=== PATIENT | female | born 1950 | race Caucasian/White ===

== ENCOUNTER 2018-05-05 17:05 | Inpatient (IN) | payer MEDICARE, OTHER ==
--- NOTE | 2018-05-05 17:32 | PDOC ---
Rapid Medical Evaluation Time Seen by Provider: 05/05/18 17:30 Medical Evaluation: 05/05/18 17:30 I performed a brief in-person evaluation on this patient. Chief complaint: Weakness, dizziness, chest tightness Pertinent physical exam findings: Pulse 36 I have ordered the following: EKG, CXR, labs Patient brought to ED monitored bed for further evaluation. Discharge Disposition - Diagnosis Symptomatic bradycardia - Referrals - Patient Instructions - Post Discharge Activity
--- NOTE | 2018-05-05 18:35 | PDOC ---
History of Present Illness - General Chief Complaint: Irregular Heart Beat Stated Complaint: BLOOD PRESSURE PROBLEM Time Seen by Provider: 05/05/18 17:30 - History of Present Illness Initial Comments: Patsy Welsh is a 68yo woman with a PMH of HTN, NIDDM, and depression who presents with fatigue for one month, acutely worsened today, and who presented with a HR of 36 in E. Ms Welsh is Wolof speaking only and her adult daughter is present to translate at bedside; a phone sheet mill supervisor was not contacted due to the urgent nature. Ms Welsh reports that she has been unusally tired for a month, but she went to her PMD about 2 weeks ago and was told she was fine. She states that she has also noticed dizziness when she stands up over the same time period. Yesterday evening, she had some chest pain that has since resolved. When she woke up this morning she was much more tired than she had been previously. She informed her daughter this evening, and the daughter brought her to the ED for evaluation. She denies any current chest pain, recent SOB, arm pain, cough, fever/chills, or other recent symptoms. Past History - Past Medical History Allergies/Adverse Reactions: Allergies Allergy/AdvReac Type Severity Reaction Status Date / Time niacin Allergy Verified 05/05/18 17:33 Home Medications: Ambulatory Orders Aspirin 81 mg PO DAILY 05/05/18 Fenofibrate,Micronized [Fenofibrate] 134 mg PO DAILY 05/05/18 Losartan Potassium [Cozaar -] 50 mg PO DAILY 05/05/18 Metformin HCl [Glucophage] 500 mg PO DAILY 05/05/18 Sertraline HCl [Zoloft -] 50 mg PO DAILY 05/05/18 COPD: No Diabetes: Yes HTN: Yes Hypercholesterolemia: Yes Psychiatric Problems: Yes (depression) - Suicide/Smoking/Psychosocial Hx Smoking History: Never smoked Review of Systems - Review of Systems Comments:: General: No fevers, no chills, no weight or appetite change, no malaise HEENT: No changes in vision, no changes in hearing, no congestion, no sore throat CV: See HPI Pulm: No SOB, no cough, no wheezing GI: No nausea or vomiting, no change in bowel habits, no melena : No frequency, no urgency, no dysuria Musc: No back pain, no joint swelling, no recent injury Skin: No rash, no lesions, no erythema Endo: No excessive thirst, no heat/cold intolerance Heme: No unusual bruising or bleeding, no swollen glands Neuro: No syncope, no numbness/tingling, no focal weakness Vasc: No claudication Psych: No recent change in mood, no SI or HI *Physical Exam - Vital Signs Last Vital Signs Temp Pulse Resp BP Pulse Ox 36 L 18 155/48 L 100 05/05/18 17:32 05/05/18 17:32 05/05/18 17:32 05/05/18 17:32 - Physical Exam Comments: General: Comfortable, no acute distress HEENT: PERRL, EOMI, MMM, voice normal, normal neck ROM, no LAD Cards: Bradycardic in the 30's, regular Pulm: Comfortable on room air, clear to auscultation bilaterally Abd: Soft, nontender, nondistended Ext: Atraumatic. No LE edema. ROM intact. Strength 5/5 and equal bilaterally Vasc: Extremities WWP. Skin: Normal color, no rashes or lesions Neuro: A&Ox3, CN grossly intact, normal speech, motor/sensory grossly intact and symmetric Psych: Mood appropriate to situation Moderate Sedation - Procedure Monitoring Vital Signs: Procedure Monitoring Vital Signs Temperature Pulse Rate 36 L 05/05/18 17:32 Respiratory Rate 18 05/05/18 17:32 Blood Pressure 155/48 L 05/05/18 17:32 O2 Sat by Pulse Oximetry (%) 100 05/05/18 17:32 ED Treatment Course - LABORATORY CBC & Chemistry Diagram: 05/05/18 17:53 05/05/18 17:53 Medical Decision Making - Medical Decision Making 05/05/18 17:59 Patsy Welsh is a 68yo woman with a PMH of HTN, NIDDM, and depression who presents with fatigue for one month that acutely worsened today. HR was noted to be 36 on admission. - Mental status normal, SBP in 150's - CBC, CMP, coags, trop sent - EKG completed. Bradycardic with HR 35. Sent to Dr Lambert; recommending ICU admission with thoracic consult for pacemaker placement tomorrow - Spoke to ICU resident, will accept - BGM checked, glucose is 120. - Meds reviewed. No beta blockers or calcium channel blockers. 05/05/18 19:27 - CBC unremarkable - CXR reviewed, no abnormalities noted - 18g IV placed in right AC by me in anticipation of possible need for cardiac support - Discussed with medicine team, will accept for admission to ICU. - Family updated with the plan for ICU admission and pacemaker placement soon; they agree and understand. Seen and discussed with Dr Hernandez. Zofia Frazier PGY1 *DC/Admit/Observation/Transfer Diagnosis at time of Disposition: Symptomatic bradycardia - Discharge Dispostion Decision to Admit order: Yes - Referrals - Patient Instructions - Post Discharge Activity
--- NOTE | 2018-05-05 18:37 | PDOC ---
Attending Attestation - HPI HPI: The patient is a 68 year old female, with a significant PMH of DM, HTN ( compliant with Losartan), hypercholesterolemia, and depression, who presents to the emergency department today complaining of chest pressure for 2 days, and general fatigue for 1 month. Patient reports feeling diffuse chest pressure since last night. Patient also reports progressively worsening fatigue for 1 month. She notes associated dizziness when trying to get up from a seated position. She does note that she saw her primary doctor last month, and everything was normal. Patient has never met with a assembler seat prior to today s ED visit. The patient denies shortness of breath and headache. Denies fever, chills, nausea, vomit, diarrhea and constipation. Denies dysuria, frequency, urgency and hematuria. Allergies: Niacin Past surgical history: None reported Social history: No reported PCP: Dr. Araiza 05/05/18 18:39 - Physicial Exam PE: GENERAL: Awake, alert, and fully oriented, in no acute distress HEAD: No signs of trauma EYES: PERRLA, EOMI, sclera anicteric, conjunctiva clear ENT: Auricles normal inspection, hearing grossly normal, nares patent, oropharynx clear without exudates. Moist mucosa NECK: Normal ROM, supple, no lymphadenopathy, JVD, or masses LUNGS: Breath sounds equal, clear to auscultation bilaterally. No wheezes, and no crackles HEART: +Bradycardic. Normal S1 and S2, no murmurs, rubs or gallops. ABDOMEN: Soft, nontender, normoactive bowel sounds. No guarding, no rebound. No masses EXTREMITIES: Normal range of motion, no edema. No clubbing or cyanosis. No cords, erythema, or tenderness NEUROLOGICAL: Cranial nerves II through XII grossly intact. Normal speech, normal gait SKIN: Warm, Dry, normal turgor, no rashes or lesions noted. 05/05/18 18:39 - Medical Decision Making 6:00pm- Dr. Navarrete's call service, awaiting call back. 6:17pm- spoke with Dr. Escobar concerning patient's EKG 6:25pm- spoke with Dr. Escobar concerning patient's care Documentation prepared by EVON Houser, acting as medical transcription radiology for Leandra Hernandez DO. 05/05/18 18:40 <Fernanda Hurtado - Last Filed: 05/05/18 18:54> - Resident Resident Name: Zofia Frazier - ED Attending Attestation I have performed the following: I have examined & evaluated the patient, The case was reviewed & discussed with the resident, I agree w/resident's findings & plan, Exceptions are as noted - Critical Care Time Total Critical Care Time: 35 Critical Care Statement: The care of this patient involved high complexity decision making to prevent further life threatening deterioration of the patient 's condition and/or to evaluate & treat vital organ system(s) failure or risk of failure. - Medical Decision Making 05/05/18 18:32 I, Dr. Leandra Hernandez, DO, attest that this document has been prepared under my direction and personally reviewed by me in its entirety. I further attest, that it accurately reflects all work, treatment, procedures and medical decision -making performed by me. 05/05/18 18:32 a/p: 68yo female with bradycardia, weakness, cp -pt with high grade av block -pt c/o cp today -not on BB or CBBB -pt state becoming more weak over the last month -follows with Dr. Araiza -hx of HTN, HLD, DM -will send labs, will discuss with cardio -will obtain cxr -zol pads -will monitor and reassess 05/05/18 18:[address] Lambert-recommends ICU admission, consult to Dr. Mcwilliams for pacer placement -r/o reversible causes of heart block and hanny will see in consult resident discussed with the ICU team who will eval the patient pending labs 05/05/18 18:50 pt updated on the plan pt currenlty stable with BP will monitor and reassess pending labs 05/05/18 19:41 labs reviewed microblog sent to [facility] for admission 05/05/18 19:49 resident is discussing the case with [facility] who accepts pt to service <Leandra Hernandez - Last Filed: 05/05/18 19:49> Heart Score/ECG Review - ECG Intrepretation Comment:: 05/05/18 18:34 sinus hanny at 35 with a high av block, no acute st changes, abnl ekg <Leandra Hernandez - Last Filed: 05/05/18 19:49>
[2018-05-05 18:42] LABS: BASO % 0.3 % (0-2.0); EOS % 2.5 % (0-4.5); HEMATOCRIT 40.2 % (32.4-45.2); HEMOGLOBIN 14.1 GM/dL (10.7-15.3); LYMPH % 24.7 % (8-40); MCH 32.8 pg (25.7-33.7); MCHC 35.2 g/dl (32.0-36.0); MEAN CELL VOLUME 93.3 fl (80-96); MEAN PLT VOLUME 8.7 fl (7.5-11.1); MONO % 6.7 % (3.8-10.2); NEUT % 65.8 % (42.8-82.8); PLATELET COUNT 215 K/MM3 (134-434); RDW 13.3 % (11.6-15.6); WHITE BLOOD COUNT 6.9 K/mm3 (4.0-10.0)
[2018-05-05 19:01] LABS: INR 0.97 (0.83-1.09); PROTHROMBIN TIME (PATIENT) 11.4 SEC (9.7-13.0)
[2018-05-05 19:27] LABS: ALBUMIN 4.4 g/dl (3.4-5.0); ALK PHOS 150 U/L (45-117); ANION GAP 11 MMOL/L (8-16); BILIRUBIN,TOTAL 0.3 mg/dL (0.2-1); BLOOD UREA NITROGEN 23 mg/dL (7-18); CALCIUM 9.4 mg/dL (8.5-10.1); CHLORIDE 106 mmol/L (98-107); CO2 24 mmol/L (21-32); CREATININE 0.9 mg/dL (0.55-1.3); GLUCOSE,RANDOM 122 mg/dL (74-106); POTASSIUM 4.5 mmol/L (3.5-5.1); SGOT/AST 67 U/L (15-37); SGPT/ALT 61 U/L (13-61); SODIUM 140 mmol/L (136-145); TOT PROT 7.8 g/dl (6.4-8.2)
[2018-05-05 19:32] LABS: N-TERMINAL BNP 266.3 pg/ml (5-125)
--- NOTE | 2018-05-05 21:48 | PN ---
Teaching Attending Note Name of Resident: Leanna Matos ATTENDING PHYSICIAN STATEMENT I saw and evaluated the patient. I reviewed the resident's note and discussed the case with the resident. I agree with the resident's findings and plan as documented. SUBJECTIVE: Seen and examined; please see resident's note for further historical information. Briefly, this is a 68 y/o Female presenting to the ER with a hist of sx; she has had easy fatiguability for a month that has been worse over the past several days with exertion; she has had atypical chest pressure as well for the past several days. She was found to have a high degree AV block (3:1 Mobitz II on EKG) and cardiology was consulted; recommended pacemaker consult to Dr. Mcwilliams ([phone]) for pacemaker placement, ICU admit, and Zoll Pads on. She has normal BP and is mentating appropriately. Will be brought to the ICU for further treatment and monitoring with CV consultation. Appreciate CV, ER, and ICU help in the management of this patient. Furthermore I should mention that the patient had similar symptoms when she was in [place] several years ago and was seen by cardiology there and did not have any pacemaker,etc. We do not have these old records. 10 sys ROS done and negative aside from HPI PMH and PSH reviewed FH asked and noncontributory Social history reviewed Medication list reconciliation pending. OBJECTIVE: NAD, AAO, resting comfortably in bed with family at bedside. NC AT EOMI PERRLA Bradycardic with HR ranging from 30-60, no kisha mgr Lungs CTAB with sym exp NT ND +BS CN2-12 wnl, no fnd Normal mood, appropriate affect No LE edema, no JVD Labs show unremarkable CBC with unremarkable coags. AST 67 and Alkaline Phosphatase is 150, BNP 266 EKG shows high degree AVB as documented Telemetry reviewed Echo pending ASSESSMENT AND PLAN: Patient presents with a high degree av block and will be admitted to the ICU with CV consultation for pacemaker evaluation. 1) High Degree AVB -admit to the icu with CV consult -Zoll pads applied -Pacemaker eval pending -Externally pace should BP drop, etc. If this happens will call cardiology immediately 2) HTN -Reconcile home meds; would hold PO antihypertensives for now given #1 3) DM -SSi when inpatient.
--- NOTE | 2018-05-05 21:58 | HP ---
CHIEF COMPLAINT: SOB PCP: Dr. Zhen Araiza HISTORY OF PRESENT ILLNESS: 68 y/o F with PMH HTN, NIDDM, depression, who presents to the ED c/o continual fatigue over the past month. As per pt, she has had generalized fatigue and body weakness this month. Two weeks ago, she went to see her PMD, Dr. Araiza, to determine the etiology however was told that her tests were WNL and sent home. However, ever since, her sx have continued. She also endorses mid-sternal chest pressure over the last day. It is intermittent, lasting for minutes at a time. When pt came to the ED she was found to have a HR of 36, EKG showed high degree heart block. Denies DYSON, fever, chills, recent illnesses, current SOB, chest pain or pressure, or changes in urinary or bowel function. Hx positive for sick contacts as multiple family members have the cold. Two years ago, pt had the same sx as today and underwent a cardiac w/u in [place] - was told it was WNL. ER course was notable for: (1) HR 30's (2) high degree AV Block (3) Recent Travel: denies PAST MEDICAL HISTORY: as above PAST SURGICAL HISTORY: appendectomy Social History: never worked in past. Smoking: denies Alcohol: denies Drugs: denies Family History: mother- DM Allergies niacin Allergy (Verified 05/05/18 17:33)- pruritis HOME MEDICATIONS: Home Medications Medication Instructions Recorded Aspirin 81 mg PO DAILY 05/05/18 Fenofibrate,Micronized 134 mg PO DAILY 05/05/18 [Fenofibrate] Losartan Potassium [Cozaar -] 50 mg PO DAILY 05/05/18 Metformin HCl [Glucophage] 500 mg PO DAILY 05/05/18 Sertraline HCl [Zoloft -] 50 mg PO DAILY 05/05/18 these meds have been confirmed with daughter at bedside however need to be re-checked/call pharmacy as she is not certain of some of the meds. also has paperwork with her REVIEW OF SYSTEMS CONSTITUTIONAL: Absent: fever, chills, diaphoresis, generalized weakness, malaise, loss of appetite, weight change HEENT: Absent: rhinorrhea, nasal congestion, throat pain, throat swelling, difficulty swallowing, mouth swelling, ear pain, eye pain, visual changes CARDIOVASCULAR: +bradycardia Absent: chest pain, syncope, palpitations, irregular heart rate, lightheadedness , peripheral edema RESPIRATORY: Absent: cough, shortness of breath, dyspnea with exertion, orthopnea, wheezing, stridor, hemoptysis GASTROINTESTINAL: Absent: abdominal pain, abdominal distension, nausea, vomiting, diarrhea, constipation, melena, hematochezia GENITOURINARY: Absent: dysuria, frequency, urgency, hesitancy, hematuria, flank pain, genital pain MUSCULOSKELETAL: Absent: myalgia, arthralgia, joint swelling, back pain, neck pain SKIN: Absent: rash, itching, pallor HEMATOLOGIC/IMMUNOLOGIC: Absent: easy bleeding, easy bruising, lymphadenopathy, frequent infections ENDOCRINE: Absent: unexplained weight gain, unexplained weight loss, heat intolerance, cold intolerance NEUROLOGIC: Absent: headache, focal weakness or paresthesias, dizziness, unsteady gait, seizure, mental status changes, bladder or bowel incontinence PSYCHIATRIC: Absent: anxiety, depression, suicidal or homicidal ideation, hallucinations. PHYSICAL EXAMINATION Vital Signs 05/05/18 05/05/18 05/05/18 18:40 19:35 20:42 Temperature 98.1 F Pulse Rate Pulse Rate [ 42 L 54 L 37 L Apical] Respiratory 14 16 Rate Blood Pressure Blood Pressure 154/48 L 142/50 L [Right Arm] O2 Sat by Pulse 98 98 Oximetry (%) GENERAL: Very pleasant. Awake, alert, and fully oriented, in no acute distress HEAD: Normal with no signs of trauma. EYES: Pupils equal, round and reactive to light, extraocular movements intact, sclera anicteric, conjunctiva clear. EARS, NOSE, THROAT: Ears normal, nares patent, oropharynx clear without exudates. Moist mucous membranes. NECK: Normal range of motion, supple LUNGS: Breath sounds equal, clear to auscultation bilaterally. No wheezes, and no crackles. No accessory muscle use. HEART: Regular rate and rhythm, normal S1 and S2 without murmur, rub or gallop. ABDOMEN: Soft, nontender, not distended, normoactive bowel sounds, no guarding, no rebound, no masses. No hepatomegaly or splenomegaly. LOWER EXTREMITIES: 2+ pt pulses, warm, well-perfused. No calf tenderness. No peripheral edema. NEUROLOGICAL: Cranial nerves II-XII intact. Normal speech. 5/5 motor strength UE, LE, sensation intact. PSYCHIATRIC: Cooperative. Good eye contact. SKIN: Warm, dry, normal turgor Laboratory Results 05/05/18 05/05/18 05/05/18 17:53 17:53 17:53 WBC 6.9 RBC 4.30 Hgb 14.1 Hct 40.2 MCV 93.3 MCH 32.8 MCHC 35.2 RDW 13.3 Plt Count 215 MPV 8.7 Absolute Neuts (auto) 4.5 Neutrophils % 65.8 Lymphocytes % 24.7 Monocytes % 6.7 Eosinophils % 2.5 Basophils % 0.3 Nucleated RBC % 0 PT with INR 11.40 INR 0.97 Sodium 140 Potassium 4.5 Chloride 106 Carbon Dioxide 24 Anion Gap 11 BUN 23 H Creatinine 0.9 Creat Clearance w eGFR > 60 POC Glucometer Random Glucose 122 H Calcium 9.4 Total Bilirubin 0.3 AST 67 H ALT 61 Alkaline Phosphatase 150 H Creatine Kinase 76 Troponin I 0.02 B-Natriuretic Peptide Total Protein 7.8 Albumin 4.4 TSH 05/05/18 17:53 B-Natriuretic Peptide 266.3 H TSH 1.00 EKG: high degree AV block (2/3), with HR 35 , qtc 357ms. CXR: without infiltrates, effusions. official read pending ASSESSMENT/PLAN: 68 y/o F with PMH HTN, NIDDM, depression, who presents to the ED c/o continual fatigue over the past month. Pt was found to be in heart block. #High degree AV block -will need further w/u on etiology. asymptomatic, TSH, BNP WNL -cardiology on board; Dr. Lambert -keep zoll pads on pt if needs pacing . will need to contact cardio if any change in status -case d/w CT sx: Dr. Mcwilliams. will see pt in AM and for likely PPM tomorrow -trend trops -NPO after MN -f/u ECHO #HTN -holding anti-HTN for now -hold cozaar #NIDDM -last A1c 6.7 (04/21/18) -ISS ACHS, BGM -hold metformin #elevated ALP -could be 2/2 bile duct, hepatic cause however asymptomatic -f/u GGT, abdominal sono #depression -hold zoloft for now -needs thorough med rec; daughter states not on prozac anymore, need to call pharmacy to confirm #F/E/N no fluids required at this time continue to follow lytes NPO for likely PPM tomorrow #PPX SCD's #Dispo ICU monitoring; for PPM tomorrow Visit type - Emergency Visit Emergency Visit: Yes ED Registration Date: 05/05/18 Care time: The patient presented to the Emergency Department on the above date and was hospitalized for further evaluation of their emergent condition. - New Patient This patient is new to me today: Yes Date on this admission: 05/06/18 - Critical Care Critical Care patient: No
[2018-05-05] MEDS: INSULIN SLIDING SCALE (NOVOLOG) 1 VIAL SQ SCH (22:28)
--- NOTE | 2018-05-06 00:33 | CONSULT ---
Consult Consult Specialty:: ICU Referred by:: ED Reason for Consultation:: bradycardia - History of Present Illness Chief Complaint: chest pressure and fatigue History of Present Illness: 68 yr old iranian speaking woman with depression, HTN and DM presented to ED with chest pressure for the past 2 days a/w dizziness and lightheadedness with increased exertional dyspnea for the past 1 month. cardiac symptoms began one month ago after a cold. 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 she presented due to the chest pressure now. She had a similar episode 1 years ago while she was in [place]. at that time she was evlauted and her sister recalls being told "something was enlarged in the heart." cold symptoms included rhinorrhea, productive cough and fever that lasted a few days, denies myalgia and maliase. all cold symptoms resolved without abx or OTC treatments. denies hx of VT, stroke, irregular heart rate, abd pain, diarrhea, constipation , fevers, headache, edema, rash. denies new medications. took her losartan this morning, compliant with her medications, has been taking her sertraline for years. 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 - History Source History Provided By: Patient, Family Member - Past Surgical History Past Surgical History: Yes: Appendectomy - Smoking History Smoking history: Never smoked - Social History Usual Living Arrangement: With Parent ADL: Independent Home Medications - Allergies Allergies/Adverse Reactions: Allergies Allergy/AdvReac Type Severity Reaction Status Date / Time niacin Allergy Verified 05/05/18 17:33 - Home Medications Home Medications: Ambulatory Orders Aspirin 81 mg PO DAILY 05/05/18 Fenofibrate,Micronized [Fenofibrate] 134 mg PO DAILY 05/05/18 Losartan Potassium [Cozaar -] 50 mg PO DAILY 05/05/18 Metformin HCl [Glucophage] 500 mg PO DAILY 05/05/18 Sertraline HCl [Zoloft -] 50 mg PO DAILY 05/05/18 Acetaminophen W/ Codeine #3 [Tylenol # 3 -] 1 tab PO Q6H PRN #10 tablet MDD 4 tabs 05/08/18 Family Disease History - Family Disease History Family History: Denies Review of Systems - Review of Systems Constitutional: denies: Unintentional Wgt. Loss Eyes: reports: No Symptoms HENT: reports: No Symptoms Neck: reports: No Symptoms Cardiovascular: reports: Shortness of Breath, Other (retrosternal, nonradiating chest pressure). denies: Edema, Palpitations Respiratory: reports: SOB on Exertion Gastrointestinal: denies: Abdominal Pain, Constipation, Diarrhea, Nausea, Vomiting Neurological: reports: Dizziness Hematology/Lymphatic: denies: Easily Bruised, Excessive Bleeding Physical Exam Vital Signs: Vital Signs Temperature 98.1 F 05/05/18 18:40 Pulse Rate 55 L 05/05/18 22:24 Respiratory Rate 17 05/05/18 22:24 Blood Pressure 140/48 L 05/05/18 22:24 O2 Sat by Pulse Oximetry (%) 98 05/05/18 22:24 Constitutional: Yes: No Distress, Calm Eyes: Yes: Conjunctiva Clear, EOM Intact HENT: Yes: Atraumatic, Normocephalic Neck: Yes: Supple, Trachea Midline. No: Lymphadenopathy, Tenderness, Thyromegaly Cardiovascular: Yes: Bradycardia Respiratory: Yes: Regular, CTA Bilaterally Gastrointestinal: Yes: Normal Bowel Sounds, Soft. No: Distention Musculoskeletal: Yes: WNL Extremities: Yes: WNL Edema: No Neurological: Yes: Alert, Oriented, Cran Nerves II-XII Intact ...Motor Strength: WNL Labs: CBC, BMP 05/05/18 17:53 05/05/18 17:53 Assessment/Plan 68 yr old woman with HTN, dM, depression presents with symptomatic bradycardia likely due to high degree avb being monitoring the ICU pending cardiothoracic evaluation for pacemaker. Cardiovasc pacer pads in place with monitor at bedside CT surgeon contacted by primary team, will come to see pt in the morning, NPO for possible OR tomorrow hold losartan trend trops echo Neuro - hold sertraline, npo for possible OR GI - transaminitis - check GGT to differentiate between liver vs bone source of alk phos - liver US for further evaluation Endo NIDDM - BGM ACHS, fingerstick currently low, will add coverage as needed VTE - scd's in place
[2018-05-06 02:26] VITALS: BMI 21.8
[2018-05-06 06:23] LABS: BASO % 0.4 % (0-2.0); EOS % 4.4 % (0-4.5); HEMATOCRIT 37.4 % (32.4-45.2); HEMOGLOBIN 13.2 GM/dL (10.7-15.3); LYMPH % 37.6 % (8-40); MCH 32.4 pg (25.7-33.7); MCHC 35.2 g/dl (32.0-36.0); MEAN CELL VOLUME 91.9 fl (80-96); MEAN PLT VOLUME 8.3 fl (7.5-11.1); MONO % 7.6 % (3.8-10.2); PLATELET COUNT 192 K/MM3 (134-434); RBC 4.07 M/mm3 (3.60-5.2); RDW 13.4 % (11.6-15.6); WHITE BLOOD COUNT 4.9 K/mm3 (4.0-10.0)
[2018-05-06] MEDS: INSULIN SLIDING SCALE (NOVOLOG) 1 VIAL SQ SCH ×3 (06:29→17:31)
[2018-05-06 07:14] LABS: ANION GAP 9 MMOL/L (8-16); BLOOD UREA NITROGEN 16 mg/dL (7-18); CALCIUM 8.7 mg/dL (8.5-10.1); CHLORIDE 107 mmol/L (98-107); CO2 25 mmol/L (21-32); CREATININE 0.7 mg/dL (0.55-1.3); GLUCOSE,RANDOM 108 mg/dL (74-106); MAGNESIUM 2.1 mg/dL (1.8-2.4); PHOSPHOROUS 3.5 mg/dL (2.5-4.9); POTASSIUM 3.9 mmol/L (3.5-5.1); SODIUM 141 mmol/L (136-145)
--- NOTE | 2018-05-06 08:57 | PN ---
Progress Note, Physician Chief Complaint: Ms Welsh is without complaint. No cp, sob, n/v. - Current Medication List Current Medications: Active Medications Chlorhexidine Gluconate (Hibiclens For Decolonization -) 1 applic TP HS NANETTE Insulin Aspart (Novolog Vial Sliding Scale -) 1 vial SQ ACHS NANETTE; Protocol Last Admin: 05/06/18 06:29 Dose: Not Given Mupirocin (Bactroban Ointment (For Decolonization) -) 1 applic NS BID NANETTE Stop: 05/11/18 09:59 - Objective Vital Signs: Vital Signs Temperature 37.0 C 05/06/18 06:00 Pulse Rate 55 L 05/06/18 08:27 Respiratory Rate 18 05/06/18 08:37 Blood Pressure 137/58 L 05/06/18 08:27 O2 Sat by Pulse Oximetry (%) 98 05/06/18 08:37 Constitutional: Yes: Well Nourished, No Distress, Calm Cardiovascular: Yes: Bradycardia. No: Pulse Irregular, Gallop, Murmur, Rub Respiratory: Yes: Regular, CTA Bilaterally. No: Rales, Rhonchi, Wheezes Gastrointestinal: Yes: Normal Bowel Sounds, Soft. No: Distention, Tenderness Extremities: Yes: WNL Edema: No Labs: CBC, BMP 05/06/18 05:15 05/06/18 05:15 INR, PTT INR 0.97 (0.83-1.09) 05/05/18 17:53 Problem List - Problems (1) Third degree heart block Assessment/Plan: -admitted to ICU -planning for pacemaker placement -cardiology and CT surgery aware Code(s): I44.2 - ATRIOVENTRICULAR BLOCK, COMPLETE (2) HTN (hypertension) Assessment/Plan: -currently well controlled -can restart after pacemaker placed Code(s): I10 - ESSENTIAL (PRIMARY) HYPERTENSION (3) Diabetes Assessment/Plan: -currently npo -when restarting diet, place on diabetic diet with SSI Code(s): E11.9 - TYPE 2 DIABETES MELLITUS WITHOUT COMPLICATIONS (4) Depression Assessment/Plan: -restart zoloft after procedure Code(s): F32.9 - MAJOR DEPRESSIVE DISORDER, SINGLE EPISODE, UNSPECIFIED
[2018-05-06 09:03] LABS: GAMMA GLUTAMYL TRANSPEPTIDASE 30 U/L (5-85)
--- NOTE | 2018-05-06 09:20 | PN ---
Physical Exam: SUBJECTIVE: Patient seen and examined this morning. Denies any recent medication changes. Currently Asx however has felt Fatigue for the past month. Denies any recent fevers, chills, chest pain, SOB, nausea, vomiting, diarrhea, constipation. OBJECTIVE: Vital Signs Period Temp Pulse Resp BP Sys/Saleem Pulse Ox Last 24 Hr 98.1 F-98.6 F 34-55 14-20 111-162/48-67 98-100 GENERAL: A&Ox3, NAD HEAD: NCAT EYES: PERRL, EOMI ENT: Moist mucous membranes NECK: Supple LUNGS: CTA B/L, no wheezes, no crackles HEART: Regular rate and rhythm, S1, S2 without murmur ABDOMEN: Soft, nontender, nondistended, + bowel sounds, no guarding EXTREMITIES: 2+ pulses, no edema. NEUROLOGICAL: Cranial nerves II through XII grossly intact. Normal speech SKIN: Warm, dry Laboratory Results - last 24 hr 05/06/18 05/06/18 05/06/18 01:22 05:15 05:15 WBC 4.9 RBC 4.07 Hgb 13.2 Hct 37.4 MCV 91.9 MCH 32.4 MCHC 35.2 RDW 13.4 Plt Count 192 MPV 8.3 Absolute Neuts (auto) 2.5 Neutrophils % 50.0 D Lymphocytes % 37.6 D Monocytes % 7.6 Eosinophils % 4.4 Basophils % 0.4 Nucleated RBC % 0 PT with INR INR Sodium 141 Potassium 3.9 Chloride 107 Carbon Dioxide 25 Anion Gap 9 BUN 16 Creatinine 0.7 Creat Clearance w eGFR > 60 POC Glucometer Random Glucose 108 H Calcium 8.7 Phosphorus 3.5 Magnesium 2.1 Total Bilirubin AST ALT Alkaline Phosphatase Creatine Kinase Troponin I 0.03 B-Natriuretic Peptide Total Protein Albumin TSH Active Medications Chlorhexidine Gluconate (Hibiclens For Decolonization -) 1 applic TP HS NANETTE Insulin Aspart (Novolog Vial Sliding Scale -) 1 vial SQ ACHS NAN[facility]TE; Protocol Last Admin: 05/06/18 06:29 Dose: Not Given Mupirocin (Bactroban Ointment (For Decolonization) -) 1 applic NS BID NANETTE Stop: 05/11/18 09:59 ASSESSMENT/PLAN: 68 y/o F with PMHx of HTN, NIDDM, Depression who presented with fatigue, found to be in 3:1 Type II Heart block and will be monitored in ICU for PPM Placement #Neuro -A&Ox3, NAD -No active issues, Continue to monitor #Cardiovasc 3:1 AV Block Hx of HTN -Unclear Etiology; Lytes, BNP, TSH WNL -Echo: LV EF 55-60%, Impaired LV Relaxation, Mild MR, Mild TR -EK:1 AV block, HR 35, QTc 357 -Cardiology (Dr. Lambert) consulted -Place pacer pads on patient with monitor at bedside -Primary team discussed the case with CT Surgery Dr. Mcwilliams -NPO for PPM placement today -Hold home dose AntiHTN meds -Will resume PO meds once taking PO -Trop 0.02 --> 0.03 #Pulmonary -Maintaining Airway -CXR: No acute pathology -No active issues, Continue to monitor -Supplemental O2 to keep SpO2 > 90% #GI Elevated Alk Phos, AST -GGT pending this AM -Liver US pending #Psych Hx of Depression -Hold Sertraline #Endocrine NIDDM -BGM ISS ACHS #FEN -PO Fluids -Lytes WNL -NPO #PPx -DVT: SCDs Dispo: Continue to monitor in ICU, PPM Placement today Visit type - Emergency Visit Emergency Visit: Yes ED Registration Date: 05/05/18 Care time: The patient presented to the Emergency Department on the above date and was hospitalized for further evaluation of their emergent condition. - New Patient This patient is new to me today: No - Critical Care Critical Care patient: Yes Total Critical Care Time (in minutes): 36 Critical Care Statement: The care of this patient involved high complexity decision making to prevent further life threatening deterioration of the patient 's condition and/or to evaluate & treat vital organ system(s) failure or risk of failure.
[2018-05-06] MEDS ORDERED: MUPIROCIN 2% TOPICAL OINTMENT FOR DECOLONIZATION NS SCH ×2 (10:00→22:00)
--- NOTE | 2018-05-06 10:10 | ECHO ---
Version: 1 Name: ROJAS CASTILLO Exam: Adult Echocardiogram Study Date: 05/06/2018, 9:16 AM Age: 68 Years MMode/2D Measurements & Calculations IVSd: 3.0 cm LVIDs: 1.07 cm LVIDd: 1.17 cm ACS: 1.89 cm Doppler Measurements & Calculations Lat Peak E' Didier: 6.5 cm/sec Med Peak E' Didier: 5.8 cm/sec TR max didier: 118.1 cm/sec TR max P.7 mmHg Left Ventricle Left ventricular systolic function is normal. Ejection Fraction = 55-60%. The transmitral spectral D oppler flow pattern is suggestive of impaired LV relaxation. Right Ventricle Borderline right ventricular enlargement. The right ventricular systolic function is grossly normal. Atria Normal left and right atrial size and function. Mitral Valve The mitral valve is normal in structure and function. There is no mitral valve stenosis. There is mi ld mitral regurgitation. Tricuspid Valve The tricuspid valve is not well visualized, but is grossly normal. There is mild tricuspid regurgita tion. Right ventricular systolic pressure is normal. Aortic Valve The aortic valve opens well. No hemodynamically significant valvular aortic stenosis. No aortic regu rgitation is present. Pulmonic Valve The pulmonic valve is not well seen, but is grossly normal. There is no pulmonic valvular stenosis. Great Vessels The aortic root is normal size. Pericardium/Pleura There is pericardial thickening and/or a small pericardial effusion. Summary Statements Left ventricular systolic function is normal. Ejection Fraction = 55-60%. The transmitral spectral Doppler flow pattern is suggestive of impaired LV relaxation. Borderline right ventricular enlargement. The right ventricular systolic function is grossly normal. There is mild mitral regurgitation. There is mild tricuspid regurgitation. Right ventricular systolic pressure is normal. There is pericardial thickening and/or a small pericardial effusion. MD Kaba *Amaury 05/06/2018, 10:10 AM Ordering Physician: Leanna Matos Performed By: Joana Cohn
--- NOTE | 2018-05-06 11:44 | CON.CARD ---
Cardiology Consult (text) - Consultation Consultation Note: cc: fatigue hpi: 68 f hx htn, dm, here with fatigue. Past month or so she has been feeling tired with lack of energy and fatigue with exertion. Yesterday also noticed brief sharp central cp. No sob palps dizzy loc pnd orthopnea le edema. Came to ER and noted to be in high degree avb with HR in 30s. Monitored in icu overnight and tele showing sinus hanny now with 1:1 conduction. pmh: per hpi psh: appendectomy fam: no premature cad, scd social: no tob ros: per hpi; no nvd fever cough gib hematuria dysuria meds: Home Medications Medication Instructions Recorded Aspirin 81 mg PO DAILY 05/05/18 Fenofibrate,Micronized 134 mg PO DAILY 05/05/18 [Fenofibrate] Losartan Potassium [Cozaar -] 50 mg PO DAILY 05/05/18 Metformin HCl [Glucophage] 500 mg PO DAILY 05/05/18 Sertraline HCl [Zoloft -] 50 mg PO DAILY 05/05/18 pe: Vital Signs Period Temp Pulse Resp BP Sys/Saleem Pulse Ox Last 24 Hr 98.1 F-98.6 F 34-78 14-20 111-162/48-67 98-100 nad no jvd regular, hanny, s1s2 no mrg cta bl nl eff aaox3 no le e/c/c abd nt nd pos bs no jaundice diaphoresis pos dp pt no carotid bruits Laboratory Last Values WBC 4.9 K/mm3 (4.0-10.0) 05/06/18 05:15 RBC 4.07 M/mm3 (3.60-5.2) 05/06/18 05:15 Hgb 13.2 GM/dL (10.7-15.3) 05/06/18 05:15 Hct 37.4 % (32.4-45.2) 05/06/18 05:15 MCV 91.9 fl (80-96) 05/06/18 05:15 MCH 32.4 pg (25.7-33.7) 05/06/18 05:15 MCHC 35.2 g/dl (32.0-36.0) 05/06/18 05:15 RDW 13.4 % (11.6-15.6) 05/06/18 05:15 Plt Count 192 K/MM3 (134-434) 05/06/18 05:15 MPV 8.3 fl (7.5-11.1) 05/06/18 05:15 Absolute Neuts (auto) 2.5 K/mm3 (1.5-8.0) 05/06/18 05:15 Neutrophils % 50.0 % (42.8-82.8) D 05/06/18 05:15 Lymphocytes % 37.6 % (8-40) D 05/06/18 05:15 Monocytes % 7.6 % (3.8-10.2) 05/06/18 05:15 Eosinophils % 4.4 % (0-4.5) 05/06/18 05:15 Basophils % 0.4 % (0-2.0) 05/06/18 05:15 Nucleated RBC % 0 % (0-0) 05/06/18 05:15 PT with INR 11.40 SEC (9.7-13.0) 05/05/18 17:53 INR 0.97 (0.83-1.09) 05/05/18 17:53 Sodium 141 mmol/L (136-145) 05/06/18 05:15 Potassium 3.9 mmol/L (3.5-5.1) 05/06/18 05:15 Chloride 107 mmol/L (98-107) 05/06/18 05:15 Carbon Dioxide 25 mmol/L (21-32) 05/06/18 05:15 Anion Gap 9 MMOL/L (8-16) 05/06/18 05:15 BUN 16 mg/dL (7-18) 05/06/18 05:15 Creatinine 0.7 mg/dL (0.55-1.3) 05/06/18 05:15 Creat Clearance w eGFR > 60 (>60) 05/06/18 05:15 POC Glucometer 97.45982 UNITS (80-120) 05/05/18 22:27 Random Glucose 108 mg/dL (74-106) H 05/06/18 05:15 Calcium 8.7 mg/dL (8.5-10.1) 05/06/18 05:15 Phosphorus 3.5 mg/dL (2.5-4.9) 05/06/18 05:15 Magnesium 2.1 mg/dL (1.8-2.4) 05/06/18 05:15 Total Bilirubin 0.3 mg/dL (0.2-1) 05/05/18 17:53 GGT 30 U/L (5-85) 05/06/18 05:15 AST 67 U/L (15-37) H 05/05/18 17:53 ALT 61 U/L (13-61) 05/05/18 17:53 Alkaline Phosphatase 150 U/L (45-117) H 05/05/18 17:53 Creatine Kinase 76 U/L (26-192) 05/05/18 17:53 Troponin I 0.03 ng/ml (0.00-0.05) 05/06/18 01:22 B-Natriuretic Peptide 266.3 pg/ml (5-125) H 05/05/18 17:53 Total Protein 7.8 g/dl (6.4-8.2) 05/05/18 17:53 Albumin 4.4 g/dl (3.4-5.0) 05/05/18 17:53 TSH 1.00 uIU/ml (0.358-3.74) 05/05/18 17:53 echo 04/2018: nl lv/rv, mild mr, mild tr, nl rvsp cxr: clear lungs tele: sr 50s, no avb ecg: sr with high degree avb, VR 30s est cct 35 mins a/p: 68 f hx htn, dm, here with fatigue. high degree avb, fatigue: -Pt presented in symptomatic high degree avb. TSH wnl and pt not on av mohit blockers. Discussed with EP and given her presenting rhythm and symptoms without reversible cause, she has indication for perm pacemaker. -d/w with pt and she agrees -d/w CTS and will plan to do pacer this afternoon -pt remains npo -echo unremarkable -cont tele htn: -stable bp, holding home bp meds until after pacer placed cp: -atypical, resolved -ce's neg, ecg w/o ischemic changes, no signs of acs -echo benign -possibly related to symptomatic bradycardia, observe for now
--- NOTE | 2018-05-06 11:56 | EKG ---
Test Reason : Blood Pressure : / mmHG Vent. Rate : 035 BPM Atrial Rate : 104 BPM P-R Int : 132 ms QRS Dur : 092 ms QT Int : 468 ms P-R-T Axes : 071 078 036 degrees QTc Int : 357 ms SINUS TACHYCARDIA WITH 2ND DEGREE A-V BLOCK WITH 3:1 A-V CONDUCTION POSSIBLE LEFT ATRIAL ENLARGEMENT ABNORMAL ECG WHEN COMPARED WITH ECG OF 02-APR-2008 09:01, SINUS RHYTHM IS NOW WITH 2ND DEGREE A-V BLOCK VENT. RATE HAS DECREASED BY 20 BPM Confirmed by DIONI GARCIA, NORBERTO ([id number]) on 05/06/2018 11:55:40 AM Referred By: Confirmed By:NORBERTO WHEATLEY MD
--- NOTE | 2018-05-06 12:48 | PN ---
Teaching Attending Note Name of Resident: Nupur Scott ATTENDING PHYSICIAN STATEMENT I saw and evaluated the patient. I reviewed the resident's note and discussed the case with the resident. I agree with the resident's findings and plan as documented. SUBJECTIVE: Patient seen and examined in the ICU. Awake and alert. Denies CP or SOB. HR in the 50's with stable hemodynamics. Seen by Cardiology. Will need PPM due to symptomatic bradycardia. OBJECTIVE: Intake & Output 05/03/18 05/04/18 05/05/18 05/06/18 23:59 23:59 23:59 23:59 Intake Total 120 Output Total 1000 Balance -880 Weight 121 lb 120 lb 12.8 oz Last Vital Signs Temp Pulse Resp BP Pulse Ox 98.6 F 80 13 136/58 L 98 05/06/18 10:00 05/06/18 12:00 05/06/18 12:00 05/06/18 12:00 05/06/18 08:37 Active Medications Chlorhexidine Gluconate (Hibiclens For Decolonization -) 1 applic TP HS NANETTE Insulin Aspart (Novolog Vial Sliding Scale -) 1 vial SQ ACHS [facility]; Protocol Last Admin: 05/06/18 12:07 Dose: Not Given Mupirocin (Bactroban Ointment (For Decolonization) -) 1 applic NS BID NANETTE Stop: 05/11/18 09:59 Last Admin: 05/06/18 12:07 Dose: 1 applic GENERAL: A&Ox3, NAD HEAD: NCAT EYES: PERRL, EOMI ENT: Moist mucous membranes NECK: Supple LUNGS: CTA B/L, no wheezes, no crackles HEART: S1S2, regular ABDOMEN: Soft, nontender, nondistended, + bowel sounds, no guarding EXTREMITIES: 2+ pulses, no edema. NEUROLOGICAL: Non-focal SKIN: Warm, dry Laboratory Results - last 24 hr 05/06/18 05/06/18 05/06/18 01:22 05:15 05:15 WBC 4.9 RBC 4.07 Hgb 13.2 Hct 37.4 MCV 91.9 MCH 32.4 MCHC 35.2 RDW 13.4 Plt Count 192 MPV 8.3 Absolute Neuts (auto) 2.5 Neutrophils % 50.0 D Lymphocytes % 37.6 D Monocytes % 7.6 Eosinophils % 4.4 Basophils % 0.4 Nucleated RBC % 0 PT with INR INR Sodium 141 Potassium 3.9 Chloride 107 Carbon Dioxide 25 Anion Gap 9 BUN 16 Creatinine 0.7 Creat Clearance w eGFR > 60 POC Glucometer Random Glucose 108 H Calcium 8.7 Phosphorus 3.5 Magnesium 2.1 Total Bilirubin AST ALT Alkaline Phosphatase Creatine Kinase Troponin I 0.03 B-Natriuretic Peptide Total Protein Albumin TSH ASSESSMENT/PLAN: Symptomatic Bradycardia HTN NIDDM Depression NPO O2 as needed Pacer pads at the bedside For PPM today by CTS Glycemic control Mechanical VTE prophylaxis ICU monitoring Dr Oscar Critical care time spent in reviewing chart, evaluating patient and formulating plan - 36 minutes.
[2018-05-06] MEDS ORDERED: PROPOFOL 20 ML ONE (13:59)
[2018-05-06] MEDS ORDERED: fentaNYL CITRATE 250 MCG/5 ML VIAL ONE (13:59)
[2018-05-06] MEDS ORDERED: MIDAZOLAM HCL 2 MG/2 ML SINGLE DOSE VIAL ONE ×2 (14:00)
[2018-05-06] MEDS ORDERED: GENTAMICIN SO4 80 MG/2 ML VIAL ONE (14:49)
[2018-05-06] MEDS ORDERED: ceFAZolin SODIUM 1 GM VIAL IVPB ONE (14:55)
[2018-05-06] MEDS ORDERED: BUPIVACAINE HCL/PF 0.25% (2.5MG/ML) 10 ML VIAL IJ ONE (15:47)
[2018-05-06] MEDS ORDERED: ACETAMINOPHEN WITH CODEINE 300MG/30MG TABLET PO PRN (16:30)
[2018-05-06] MEDS ORDERED: oxyCODONE HCL 5 MG TABLET PO PRN (16:31)
[2018-05-06] MEDS: LOSARTAN POTASSIUM 50 MG TABLET (FP) PO SCH (17:56)
--- NOTE | 2018-05-06 18:02 | OP ---
Operative Note - Note: Operative Date: 05/06/18 Pre-Operative Diagnosis: Bradycardy, A-V block Operation: Insertion of dual chamber pacemaker. Implants: Pacemaker Post-Operative Diagnosis: Same as Pre-op Surgeon: Ty Mcwilliams Anesthesia: Local, MAC Estimated Blood Loss (mls): 0 Operative Report Dictated: Yes
--- NOTE | 2018-05-06 18:08 | CONSULT ---
Consult Consult Specialty:: Thoracic surgery Reason for Consultation:: A-V block - History of Present Illness Chief Complaint: fatigue, Dizziness History of Present Illness: 68 y/o F with PMH HTN, NIDDM, depression, who presents to the ED c/o continual fatigue over the past month. As per pt, she has had generalized fatigue and body weakness this month. Two weeks ago, she went to see her PMD, Dr. Araiza, to determine the etiology however was told that her tests were WNL and sent home. However, ever since, her sx have continued. She also endorses mid-sternal chest pressure over the last day. It is intermittent, lasting for minutes at a time. When pt came to the ED she was found to have a HR of 36, EKG showed high degree heart block. Denies DYSON, fever, chills, recent illnesses, current SOB, chest pain or pressure, or changes in urinary or bowel function. Hx positive for sick contacts as multiple family members have the cold. - History Source History Provided By: Family Member Limitations to Obtaining History: No Limitations - Past Medical History Cardio/Vascular: No: AFIB, Aneurysm, Aortic Insufficiency, Aortic Stenosis, CAD , CHF, Deep Vein Thrombosis, HTN, Hyperlipdemia, SC, Mitral Insufficiency, Mitral Stenosis, Murmur, Pulmonary Hypertension, Other Pulmonary: No: Asthma, Bronchitis, Cancer, COPD, O2 Dependent, Pneumonia, Previously Intubated, Pulmonary Embolus, Pulmonary Fibrosis, Sleep Apnea, Other Gastrointestinal: No: Ascites, Cancer, Constipation, Crohn's Disease, Diverticulitis, Diverticulosis, Esophageal Varices, Gastritis, GERD, GI Bleed, Hemorrhoids, Hiatal Hernia, Inflamatory Bowel Disease, Irritable Bowel Disease, Pancreatitis, Peptic Ulcer Disease, Ulcerative Colitis, Other Hepatobiliary: No: Cirrhosis, Cholelithiasis, Cholecystitis, Choledocholithiasis , Hepatitis A, Hepatitis B, Hepatitis C, Other Renal/: No: Renal Failure, Renal Inusuff, BPH, Cancer, Hematuria, Hemodialysis , Neurogenic Bladder, Renal Calculi, UTI, Other Reproductive: No: Ectopic , Endometriosis, Fibroids, PID, Polycystic Ovary Syndrome, Postmenopausal, Other ...: No Heme/Onc: No: Anemia, B12 Deficiency, Bleeding Disorder, Cancer, Current Chemotherapy, Current Radiation Therapy, Hemochromatosis, Hypercoaguable State, Myeloproliferative Synd, Sickle Cell Disease, Sickle Cell Trait, Thrombocytopenia, Other Infectious Disease: No: AIDS, C-Diff, Herpes Zoster, HIV, MRSA, STD's, Tuberculosis, VREF, Other Psych: No: Addictions, Anxiety, Bipolar, Depression, Panic, Psychosis, Schizophrenia, Other Musculoskeletal: No: Bursitis, Chronic low back pain, Hemiparesis, Hemiplegia, Osteoarthritis, Paraplegia, Other Rheumatology: No: Fibromyalgia, Gout, Lupus, Rheumatoid Arthritis, Sarcoidosis, Vasculitis, Other ENT: No: Allergic Rhinitis, Sinusitis, Other - Past Surgical History Past Surgical History: Yes: Appendectomy - Alcohol/Substance Use Hx Alcohol Use: No - Smoking History Smoking history: Never smoked - Social History Usual Living Arrangement: With Parent ADL: Independent Home Medications - Allergies Allergies/Adverse Reactions: Allergies Allergy/AdvReac Type Severity Reaction Status Date / Time niacin Allergy Verified 05/05/18 17:33 - Home Medications Home Medications: Ambulatory Orders Aspirin 81 mg PO DAILY 05/05/18 Fenofibrate,Micronized [Fenofibrate] 134 mg PO DAILY 05/05/18 Losartan Potassium [Cozaar -] 50 mg PO DAILY 05/05/18 Metformin HCl [Glucophage] 500 mg PO DAILY 05/05/18 Sertraline HCl [Zoloft -] 50 mg PO DAILY 05/05/18 Family Disease History - Family Disease History Family History: Unremarkable Review of Systems - Review of Systems Constitutional: reports: Lethargy Eyes: denies: No Symptoms, Blind Spots, Blurred Vision, Double Vision, Eye Pain , Floaters, Photophobia, Recent Change in Vision, Other HENT: denies: No Symptoms, Difficult Swallowing, Ear Discharge, Ear Pain, Epistaxis, Gingival Bleeding, Hearing Loss, Mouth Swelling, Nasal Congestion, Ocular Prosthesis, Throat Pain, Toothache, Ringing in Ears, Other Neck: denies: No Symptoms, Decreased ROM, Lumps, Pain on Movement, Stiffness, Swollen Glands, Tenderness, Other Cardiovascular: denies: No Symptoms, Chest Pain, Edema, Palpitations, Shortness of Breath, Other Respiratory: denies: No Symptoms, Cough, Exercise Intolerance, Hemoptysis, Orthopnea, PND, Snoring, SOB, SOB on Exertion, Wheezing, Other Gastrointestinal: denies: No Symptoms, Abdominal Pain, Bloating, Constipation, Diarrhea, Dysphagia, Indigestion, Melena, Nausea, Rectal Bleeding, Vomiting, Vomiting Blood, Other Genitourinary: denies: No Symptoms, Burning, Discharge, Dysuria, Flank Pain, Frequency, Hematuria, Incontinence, Lesions, Menses, Pain, Testicular Mass, Testicular Pain, Testicular Swelling, Urgency, Vaginal Bleeding, Other Breasts: denies: No Symptoms Reported, See HPI, Breast Implants, Discharge from Nipple, Lumps, Pain, Skin Changes, Other Neurological: reports: Dizziness Physical Exam Vital Signs: Vital Signs Temperature 98.0 F 05/06/18 16:45 Pulse Rate 60 05/06/18 16:45 Respiratory Rate 16 05/06/18 16:45 Blood Pressure 161/73 05/06/18 16:45 O2 Sat by Pulse Oximetry (%) 100 05/06/18 16:30 Constitutional: Yes: Well Nourished Eyes: Yes: WNL HENT: Yes: WNL Neck: Yes: WNL Cardiovascular: Yes: Bradycardia, Other Respiratory: Yes: WNL Gastrointestinal: Yes: WNL Labs: CBC, BMP 05/06/18 05:15 05/06/18 05:15 Imaging - Results Chest X-ray: Image Reviewed Problem List - Problems (1) Depression Code(s): F32.9 - MAJOR DEPRESSIVE DISORDER, SINGLE EPISODE, UNSPECIFIED (2) Diabetes Code(s): E11.9 - TYPE 2 DIABETES MELLITUS WITHOUT COMPLICATIONS (3) HTN (hypertension) Code(s): I10 - ESSENTIAL (PRIMARY) HYPERTENSION (4) Symptomatic bradycardia Code(s): R00.1 - BRADYCARDIA, UNSPECIFIED (5) Third degree heart block Code(s): I44.2 - ATRIOVENTRICULAR BLOCK, COMPLETE Assessment/Plan 68 y/o F with Total A-V block and bradycardy. No Meds that can cause this clinical condition. Needs Pacemaker implantation. Consent given. Proceed to surgery. Indication, risks, bnefits and alternative treatments are presented to patient and patient's daughter through wash driller and they consented for Surgery.
[2018-05-06] MEDS ORDERED: CHLORHEXIDINE GLUCONATE 4% CLEANSER FOR DECOLONIZATION TP SCH ×2 (22:00)
[2018-05-06] MEDS: CHLORHEXIDINE GLUCONATE 4% CLEANSER FOR DECOLONIZATION TP SCH (22:44)
[2018-05-06] MEDS: MUPIROCIN 2% TOPICAL OINTMENT FOR DECOLONIZATION NS SCH (22:45)
[2018-05-07] MEDS: INSULIN SLIDING SCALE (NOVOLOG) 1 VIAL SQ SCH ×5 (02:11→21:39)
[2018-05-07 06:45] LABS: ALBUMIN 3.8 g/dl (3.4-5.0); ALK PHOS 86 U/L (45-117); ANION GAP 5 MMOL/L (8-16); BILIRUBIN,TOTAL 0.5 mg/dL (0.2-1); BLOOD UREA NITROGEN 14 mg/dL (7-18); CALCIUM 8.4 mg/dL (8.5-10.1); CHLORIDE 108 mmol/L (98-107); CO2 27 mmol/L (21-32); CREATININE 0.6 mg/dL (0.55-1.3); GLUCOSE,RANDOM 117 mg/dL (74-106); MAGNESIUM 2.1 mg/dL (1.8-2.4); PHOSPHOROUS 3.9 mg/dL (2.5-4.9); POTASSIUM 3.9 mmol/L (3.5-5.1); SGOT/AST 47 U/L (15-37); SGPT/ALT 50 U/L (13-61); SODIUM 140 mmol/L (136-145); TOT PROT 7.1 g/dl (6.4-8.2)
[2018-05-07 06:52] LABS: BASO % 0.4 % (0-2.0); HEMATOCRIT 38.3 % (32.4-45.2); HEMOGLOBIN 13.7 GM/dL (10.7-15.3); LYMPH % 20.4 % (8-40); MCH 32.7 pg (25.7-33.7); MCHC 35.7 g/dl (32.0-36.0); MEAN CELL VOLUME 91.4 fl (80-96); MONO % 7.1 % (3.8-10.2); NEUT % 70.1 % (42.8-82.8); PLATELET COUNT 178 K/MM3 (134-434); RBC 4.19 M/mm3 (3.60-5.2); RDW 13.1 % (11.6-15.6); WHITE BLOOD COUNT 6.1 K/mm3 (4.0-10.0)
--- NOTE | 2018-05-07 08:12 | PN ---
Progress Note (short form) - Note Progress Note: PULM/CCM Patient seen and examined in the ICU. Awake and alert, hemodynamically stable, beautiful dual chamber PPM rhythm, eating, denies any CP or dizzy, ready to go home, waiting to be seen by [facility] this AM. Active Medications Acetaminophen/Codeine Phosphate (Tylenol # 3 -) 1 tab PO Q4H PRN PRN Reason: PAIN LEVEL 1-5 Chlorhexidine Gluconate (Hibiclens For Decolonization -) 1 applic TP HS [facility] Last Admin: 05/06/18 22:44 Dose: 1 applic Insulin Aspart (Novolog Vial Sliding Scale -) 1 vial SQ ACHS [facility]; Protocol Last Admin: 05/07/18 17:08 Dose: Not Given Losartan Potassium (Cozaar -) 50 mg PO DAILY [facility] Last Admin: 05/07/18 10:19 Dose: 50 mg Mupirocin (Bactroban Ointment (For Decolonization) -) 1 applic NS BID NANETTE Stop: 05/11/18 09:59 Last Admin: 05/07/18 10:19 Dose: 1 applic Oxycodone HCl (Roxicodone -) 5 mg PO Q4H PRN PRN Reason: PAIN LEVEL 6-10 Last Admin: 05/06/18 22:42 Dose: 5 mg Vital Signs Period Temp Pulse Resp BP Sys/Saleem Pulse Ox Last 24 Hr 97.7 F-98 F 60-91 11-60 124-144/55-69 100-100 Intake & Output 05/04/18 05/05/18 05/06/18 05/07/18 23:59 23:59 23:59 23:59 Intake Total 1860 460 Output Total 2610 500 Balance -750 -40 Weight 54.885 kg 54.794 kg 52.5 kg CBC, BMP 05/07/18 05:30 05/07/18 05:30 GENERAL: A&Ox3, NAD HEAD: NCAT EYES: PERRL, EOMI ENT: Moist mucous membranes NECK: Supple LUNGS: CTA B/L, no wheezes, no crackles HEART: mild pain at PM implant site, nml S1, S2, RR ABDOMEN: Soft, nontender, nondistended, + bowel sounds, no guarding EXTREMITIES: 2+ pulses, no edema. NEUROLOGICAL: Non-focal SKIN: Warm, dry STUDIES TO NOTE: CXR 05/06: Clear TTE 05/06: nl lv/rv, mild mr, mild tr, nl rvsp EKG 05/05: high degree AVB, (VR 30s) ASSESS: Symptomatic Bradycardia now s/p PPM HTN NIDDM Depression PLAN: Wean off O2 Restart home bp meds Glycemic control Mechanical VTE prophylaxis If all ok a/p BIOTRONIK --> D/c Home Critical care time spent in reviewing chart, evaluating patient and formulating plan - 36 minutes. DGL, ACNP-BC [facility] ICU PULM/CCM [id number] Critical Care Total Critical Care Time (in minutes): 36 Critical Care Statement: The care of this patient involved high complexity decision making to prevent further life threatening deterioration of the patient 's condition and/or to evaluate & treat vital organ system(s) failure or risk of failure.
--- NOTE | 2018-05-07 08:45 | PN ---
Progress Note, Physician Chief Complaint: Ms Welsh is without complaint. No cp, sob, n/v. - Current Medication List Current Medications: Active Medications Acetaminophen/Codeine Phosphate (Tylenol # 3 -) 1 tab PO Q4H PRN PRN Reason: PAIN LEVEL 1-5 Chlorhexidine Gluconate (Hibiclens For Decolonization -) 1 applic TP HS [facility] Last Admin: 05/06/18 22:44 Dose: 1 applic Insulin Aspart (Novolog Vial Sliding Scale -) 1 vial SQ ACHS [facility]; Protocol Last Admin: 05/07/18 02:11 Dose: Not Given Losartan Potassium (Cozaar -) 50 mg PO DAILY [facility] Last Admin: 05/06/18 17:56 Dose: 50 mg Mupirocin (Bactroban Ointment (For Decolonization) -) 1 applic NS BID [facility] Stop: 05/11/18 09:59 Last Admin: 05/06/18 22:45 Dose: 1 applic Oxycodone HCl (Roxicodone -) 5 mg PO Q4H PRN PRN Reason: PAIN LEVEL 6-10 Last Admin: 05/06/18 22:42 Dose: 5 mg - Objective Vital Signs: Vital Signs Temperature 36.6 C 05/07/18 02:00 Pulse Rate 61 05/07/18 08:00 Respiratory Rate 15 05/07/18 08:00 Blood Pressure 126/69 05/07/18 08:00 O2 Sat by Pulse Oximetry (%) 100 05/06/18 21:00 Constitutional: Yes: Well Nourished, No Distress, Calm Cardiovascular: Yes: Regular Rate and Rhythm. No: Gallop, Murmur, Rub Respiratory: Yes: Regular, CTA Bilaterally. No: Rales, Rhonchi, Wheezes Gastrointestinal: Yes: Normal Bowel Sounds, Soft. No: Distention, Tenderness Extremities: Yes: WNL Edema: No Labs: CBC, BMP 05/07/18 05:30 05/07/18 05:30 INR, PTT INR 0.97 (0.83-1.09) 05/05/18 17:53 Problem List - Problems (1) Third degree heart block Code(s): I44.2 - ATRIOVENTRICULAR BLOCK, COMPLETE (2) HTN (hypertension) Code(s): I10 - ESSENTIAL (PRIMARY) HYPERTENSION (3) Diabetes Code(s): E11.9 - TYPE 2 DIABETES MELLITUS WITHOUT COMPLICATIONS (4) Depression Code(s): F32.9 - MAJOR DEPRESSIVE DISORDER, SINGLE EPISODE, UNSPECIFIED Assessment/Plan (1) Third degree heart block Assessment/Plan: -s/p pacemaker placement -awaiting CT surgery evaluation -? if discharge today Code(s): I44.2 - ATRIOVENTRICULAR BLOCK, COMPLETE (2) HTN (hypertension) Assessment/Plan: -well controlled Code(s): I10 - ESSENTIAL (PRIMARY) HYPERTENSION (3) Diabetes Assessment/Plan: -diabetic diet -FSBS and SSI Code(s): E11.9 - TYPE 2 DIABETES MELLITUS WITHOUT COMPLICATIONS (4) Depression Assessment/Plan: -stable Code(s): F32.9 - MAJOR DEPRESSIVE DISORDER, SINGLE EPISODE, UNSPECIFIED
[2018-05-07] MEDS ORDERED: PT OWN MED DRAWER 7, Y5N ONE (09:01)
--- NOTE | 2018-05-07 09:43 | PN ---
Progress Note, Physician Chief Complaint: bradycardia History of Present Illness: no dizziness. no more chest pressure. mild pain at PM implant site. no pre/syncope no leg swelling - Current Medication List Current Medications: Active Medications Acetaminophen/Codeine Phosphate (Tylenol # 3 -) 1 tab PO Q4H PRN PRN Reason: PAIN LEVEL 1-5 Chlorhexidine Gluconate (Hibiclens For Decolonization -) 1 applic TP HS [facility] Last Admin: 05/06/18 22:44 Dose: 1 applic Insulin Aspart (Novolog Vial Sliding Scale -) 1 vial SQ ACHS [facility]; Protocol Last Admin: 05/07/18 02:11 Dose: Not Given Losartan Potassium (Cozaar -) 50 mg PO DAILY [facility] Last Admin: 05/06/18 17:56 Dose: 50 mg Mupirocin (Bactroban Ointment (For Decolonization) -) 1 applic NS BID [facility] Stop: 05/11/18 09:59 Last Admin: 05/06/18 22:45 Dose: 1 applic Oxycodone HCl (Roxicodone -) 5 mg PO Q4H PRN PRN Reason: PAIN LEVEL 6-10 Last Admin: 05/06/18 22:42 Dose: 5 mg - Objective Vital Signs: Vital Signs Temperature 98 F 05/07/18 02:00 Pulse Rate 61 05/07/18 08:00 Respiratory Rate 15 05/07/18 08:00 Blood Pressure 126/69 05/07/18 08:00 O2 Sat by Pulse Oximetry (%) 100 05/06/18 21:00 Constitutional: Yes: Well Nourished, No Distress, Calm Cardiovascular: Yes: Regular Rate and Rhythm, S1, S2. No: JVD, Gallop, Murmur Respiratory: Yes: Regular (equal/bilateral sounds throughout), CTA Bilaterally. No: Accessory Muscle Use, Rales, Wheezes Extremities: No: Cold Edema: No Neurological: Yes: Alert, Oriented Psychiatric: No: Agitated Labs: CBC, BMP 05/07/18 05:30 05/07/18 05:30 INR, PTT INR 0.97 (0.83-1.09) 05/05/18 17:53 Assessment/Plan echo 04/2018: nl lv/rv, mild mr, mild tr, nl rvsp cxr: clear lungs ecg: sr with high degree avb, VR 30s tele: NSR, no pauses/hanny (except around 9am when company rep was checking the device, per RN Madyson) a/p: 68 f hx htn, dm, here with fatigue. high degree av block: -s/p dual chamber PPM here -echo unremarkable -cont tele htn: -holding home bp meds here initially due to risk of hypotension -s/p PPM, stable rhythm now -PM check by company was good this am, per their verbal report to RN -bp normal -may resume home med regimen at discharge, or sooner if bp elevates here cp: -atypical, resolved -trop neg x2, ecg w/o ischemic changes, no signs of acs -nl LV function -observe clinically. if no recurrent sx's would defer inpatient ischemia eval OK FOR D/C FROM CV P.O.V.--SHOULD F/U WITH US IN OFFICE WITHIN 4 WKS FOR MONITORING OF CP AND ESTABLISHING OUTPT PM F/U
--- NOTE | 2018-05-07 09:46 | PN ---
Progress Note (short form) - Note Progress Note: Post op day#1.S/P Pacemaker placement under MAC uneventful.P 62,BP 126/69 and Spo2 99% on O2 2L NC.Patient stable.No any anesthesia related problem.Patient DC from the anesthesia care.
[2018-05-07] MEDS: LOSARTAN POTASSIUM 50 MG TABLET (FP) PO SCH (10:19)
[2018-05-07] MEDS: MUPIROCIN 2% TOPICAL OINTMENT FOR DECOLONIZATION NS SCH ×2 (10:19→23:54)
[2018-05-07] MEDS ORDERED: ONDANSETRON 4 MG/2 ML VIAL IVPUSH STA (12:08)
[2018-05-07] MEDS: CHLORHEXIDINE GLUCONATE 4% CLEANSER FOR DECOLONIZATION TP SCH (23:54)
[2018-05-08] MEDS: INSULIN SLIDING SCALE (NOVOLOG) 1 VIAL SQ SCH ×2 (06:49→12:22)
[2018-05-08 07:30] VITALS: TEMP 97.8
--- NOTE | 2018-05-08 08:28 | DS ---
Physical Examination Vital Signs: Vital Signs Temperature 36.6 C 05/08/18 06:00 Pulse Rate 60 05/08/18 06:00 Respiratory Rate 18 05/08/18 06:00 Blood Pressure 127/69 05/08/18 06:00 O2 Sat by Pulse Oximetry (%) 100 05/07/18 20:26 Constitutional: Yes: Well Nourished, No Distress, Calm Cardiovascular: Yes: Regular Rate and Rhythm. No: Gallop, Murmur, Rub Respiratory: Yes: Regular, CTA Bilaterally. No: Rales, Rhonchi, Wheezes Gastrointestinal: Yes: Normal Bowel Sounds, Soft. No: Distention, Tenderness Extremities: Yes: WNL Edema: No Labs: CBC, BMP 05/07/18 05:30 05/07/18 05:30 Discharge Summary Reason For Visit: SYMTOMATIC BRADYCARDIA Current Active Problems Depression (Acute) Diabetes (Acute) HTN (hypertension) (Acute) Symptomatic bradycardia (Acute) Third degree heart block (Acute) Hospital Course: (1) Third degree heart block Code(s): I44.2 - ATRIOVENTRICULAR BLOCK, COMPLETE (2) HTN (hypertension) Code(s): I10 - ESSENTIAL (PRIMARY) HYPERTENSION (3) Diabetes Code(s): E11.9 - TYPE 2 DIABETES MELLITUS WITHOUT COMPLICATIONS (4) Depression Code(s): F32.9 - MAJOR DEPRESSIVE DISORDER, SINGLE EPISODE, UNSPECIFIED Ms Welsh is a very pleasant 68 year old female who came in and was found to have third degree heart block. She was admitted to the ICU. She was seen by cardiology and CT surgery and underwent pacemaker placement. She tolerated this well and is without complaint. She is safe for discharge home. 31 minutes spent in preparation of this discharge Condition: Good - Instructions Diet, Activity, Other Instructions: resume previous diet and activity Referrals: Hira Navarrete MD [Staff Physician] - Ty Mcwilliams MD [Staff Physician] - Zhen Araiza MD [Primary Care Provider] - Disposition: HOME - Home Medications Comprehensive Discharge Medication List: Ambulatory Orders Aspirin 81 mg PO DAILY 05/05/18 Fenofibrate,Micronized [Fenofibrate] 134 mg PO DAILY 05/05/18 Losartan Potassium [Cozaar -] 50 mg PO DAILY 05/05/18 Metformin HCl [Glucophage] 500 mg PO DAILY 05/05/18 Sertraline HCl [Zoloft -] 50 mg PO DAILY 05/05/18 Acetaminophen W/ Codeine #3 [Tylenol # 3 -] 1 tab PO Q6H PRN #10 tablet MDD 4 tabs 05/08/18
[2018-05-08] MEDS: LOSARTAN POTASSIUM 50 MG TABLET (FP) PO SCH (09:59)
--- NOTE | 2018-05-08 10:01 | PN ---
Progress Note (short form) - Note Progress Note: PULM/CCM Patient seen and examined in the ICU. Awake and alert, hemodynamically stable, beautiful dual chamber PPM rhythm, seen by BI[employer] yesterday, eating, denies any CP or dizzy, ready to go home. Active Medications Acetaminophen/Codeine Phosphate (Tylenol # 3 -) 1 tab PO Q4H PRN PRN Reason: PAIN LEVEL 1-5 Chlorhexidine Gluconate (Hibiclens For Decolonization -) 1 applic TP HS [facility] Last Admin: 05/07/18 23:54 Dose: 1 applic Insulin Aspart (Novolog Vial Sliding Scale -) 1 vial SQ ACHS [facility]; Protocol Last Admin: 05/08/18 06:49 Dose: Not Given Losartan Potassium (Cozaar -) 50 mg PO DAILY [facility] Last Admin: 05/07/18 10:19 Dose: 50 mg Mupirocin (Bactroban Ointment (For Decolonization) -) 1 applic NS BID [facility] Stop: 05/11/18 09:59 Last Admin: 05/07/18 23:54 Dose: 1 applic Vital Signs Period Temp Pulse Resp BP Sys/Saleem Pulse Ox Last 24 Hr 97.7 F-97.8 F 60-75 13-18 120-144/59-96 100 Intake & Output 05/05/18 05/06/18 05/07/18 05/08/18 23:59 23:59 23:59 23:59 Intake Total 1860 580 60 Output Total 2610 1500 Balance -750 -920 60 Weight 54.885 kg 54.794 kg 52.5 kg 52.333 kg GENERAL: A&Ox3, NAD HEAD: NCAT EYES: PERRL, EOMI ENT: Moist mucous membranes NECK: Supple LUNGS: CTA B/L, no wheezes, no crackles HEART: mild pain at PM implant site, nml S1, S2, RR ABDOMEN: Soft, nontender, nondistended, + bowel sounds, no guarding EXTREMITIES: 2+ pulses, no edema. NEUROLOGICAL: Non-focal SKIN: Warm, dry CBC, BMP 05/07/18 05:30 05/07/18 05:30 STUDIES TO NOTE: CXR 05/06: Clear TTE 05/06: nl lv/rv, mild mr, mild tr, nl rvsp EKG 05/05: high degree AVB, (VR 30s) ASSESS: Symptomatic Bradycardia now s/p PPM HTN NIDDM Depression PLAN: Wean off O2 Restart home bp meds Glycemic control Mechanical VTE prophylaxis D/c Home Critical care time spent in reviewing chart, evaluating patient and formulating plan - 36 minutes. RIKKI, CHRISSP-BC [facility] ICU PULM/CCM [id number] Critical Care Total Critical Care Time (in minutes): 36 Critical Care Statement: The care of this patient involved high complexity decision making to prevent further life threatening deterioration of the patient 's condition and/or to evaluate & treat vital organ system(s) failure or risk of failure.
[2018-05-08] MEDS: MUPIROCIN 2% TOPICAL OINTMENT FOR DECOLONIZATION NS SCH (10:06)
[2018-05-08 11:49] VITALS: BP 119/55; PULSE 61
--- NOTE | 2018-05-09 12:35 | OP ---
DATE OF OPERATION: DATE OF DICTATION: 05/09/2018 PREOPERATIVE DIAGNOSIS: Total atrioventricular block, bradycardia. POSTOPERATIVE DIAGNOSIS: Total atrioventricular block, bradycardia. PROCEDURE PERFORMED: Insertion of dual-chamber pacemaker. SURGEON: Ty Patel MD ESTIMATED BLOOD LOSS: Less than 25 mL. DRAINS/TUBES: Not applicable. IMPLANTS: Pacemaker battery with 2 leads. INDICATION: A 68-year-old female with past medical history of hypertension and pkw-odutpal-zrlcbitvp diabetes mellitus, depression who presented to the ED because of continued fatigue over the past month. Was found to have a total AV block and bradycardia in the 30s, though hemodynamically stable. The patient was scheduled for insertion of the dual-chamber pacemaker. Risks, benefits, and alternative treatment options were presented to the patient and the patient's daughter through truss driver helper, and they consented for surgery. PROCEDURE IN DETAIL: The patient was brought into the OR and was placed in supine position. IV access at left upper extremity. Prepped and draped in the usual sterile fashion in left deltopectoral region. Contrast was given using IV access in the left upper extremity to dee the axillary vein. Hereafter, using micropuncture kit, access to the axillary vein was done, and guidewires were introduced into axillary vein all the way beyond the diaphragm. Hereafter, the guidewires from the micropuncture kit were changed to regular guidewires. Incision was made. A pocket was created. Over the guidewires, 2 sheaths were introduced into the axillary. First an RV lead was placed through the sheath into the RV and screwed into the right ventricle. Hereafter, an RA lead was placed through the anterior right atrium. The readings were as follows: Mode DDD, basic rate 60/130, pulse amplitude atrium 3 , ventricle 3, pulse width atrium 0.4, right ventricle 0.4. Expected JAMIR 10 years 6 months. Test results were sensing amplitude. For atrium 4.4, for ventricle 3.3 , threshold for atrium 0.5, for right ventricle 0.9. Impedance for aortic atrium 487 Ohms and RV 1014. Hereafter, the leads were connected to the pacemaker. Pacemaker was placed in the pocket. Hemostasis was performed. Pocket was irrigated with gentamicin irrigation. Pocket was closed using 2-0 Vicryl at the level of the fascia, 3-0 Vicryl at the level of the subcutaneous tissue, and 4-0 Monocryl at the level of the skin. I performed the procedure as dictated above. I was in the OR during the whole procedure and remained available after. TY PATEL M.D. [id number] MTDD
== END 2018-05-08 13:00 | disposition home or self-care (01) | DRG 244 ==
LOC: JER 17:05 → JERBED 19:03 → JICU 05-06 00:35
PROVIDERS: ADMIT Internal Medicine; ATTEND Internal Medicine
PROC: 0JH606Z Insertion of Pacemaker, Dual Chamber into Chest Subcutaneous Tissue and Fascia, Open Approach (ICD-10-PCS; principal; 2018-05-05)
PROC: 02HK3JZ Insertion of Pacemaker Lead into Right Ventricle, Percutaneous Approach (ICD-10-PCS; 2018-05-05)
PROC: 02H63JZ Insertion of Pacemaker Lead into Right Atrium, Percutaneous Approach (ICD-10-PCS; 2018-05-05)
DX: I44.2 Atrioventricular block, complete (principal); E11.9 Type 2 diabetes mellitus without complications; I10 Essential (primary) hypertension; E78.00 Pure hypercholesterolemia, unspecified; F32.9 Major depressive disorder, single episode, unspecified; R07.89 Other chest pain; R00.1 Bradycardia, unspecified
CPT/HCPCS: 36415; 71045-TC-FY; 76705-TC; 80048; 80053; 82550; 82962; 82977; 83735; 83880; 84100; 84443; 84484; 85025; 85610; 93005; 93010; 93306-TC; 99285-25

== ENCOUNTER 2020-01-01 18:20 | Observation (INO) | payer MEDICARE, OTHER ==
--- NOTE | 2020-01-01 18:34 | PDOC ---
Rapid Medical Evaluation Time Seen by Provider: 01/01/20 18:32 Medical Evaluation: Allergies Allergy/AdvReac Type Severity Reaction Status Date / Time niacin Allergy Verified 05/05/18 17:33 01/01/20 18:32 Pt presents for evaluation of chest pain and shortness of breath. Pt has a pace maker Exam: irregular rhythm, rate from 66 to 115 Orders: labs, EKG, CXR Pt to proceed to the ER for evaluation Discharge Disposition - Diagnosis Chest pain - Referrals - Patient Instructions - Post Discharge Activity
[2020-01-01 18:40] VITALS: BMI 20.5
--- NOTE | 2020-01-01 19:44 | PDOC ---
Attending Attestation - Resident Resident Name: Ward De La Fuente - ED Attending Attestation I have performed the following: I have examined & evaluated the patient, The case was reviewed & discussed with the resident, I agree w/resident's findings & plan - HPI HPI: 01/01/20 20:29 see resident hpi - Physicial Exam PE: 01/01/20 20:29 see resident exam - Medical Decision Making 01/01/20 20:29 69-year-old female with history of high degree heart block requiring pacemaker placement now with retrosternal chest pain radiating to the back Initial EKG shows a ventricular paced rhythm approximately 75 bpm We will plan for observation admission Discharge - Discharge Information Problems reviewed: Yes Clinical Impression/Diagnosis: Chest pain - Follow up/Referral Referrals: Noemí Aldridge MD [Primary Care Provider] - - Patient Discharge Instructions - Post Discharge Activity
[2020-01-01 20:24] LABS: BASO % 0.5 % (0-2.0); HEMATOCRIT 38.9 % (32.4-45.2); HEMOGLOBIN 13.5 GM/dL (10.7-15.3); MCH 32.8 pg (25.7-33.7); MCHC 34.6 g/dl (32.0-36.0); MEAN CELL VOLUME 94.7 fl (80-96); MEAN PLT VOLUME 8.6 fl (7.5-11.1); MONO % 8.6 % (3.8-10.2); NEUT % 52.9 % (42.8-82.8); PLATELET COUNT 214 K/MM3 (134-434); RBC 4.11 M/mm3 (3.60-5.2); RDW 13.8 % (11.6-15.6); WHITE BLOOD COUNT 4.5 K/mm3 (4.0-10.0)
--- NOTE | 2020-01-01 20:25 | PDOC ---
History of Present Illness - General Chief Complaint: Chest Pain Stated Complaint: CHEST PAIN/ SOB Time Seen by Provider: 01/01/20 18:32 - History of Present Illness Initial Comments: 69 YOF h/o htn, diabetes, bradycardia on pacemaker presents wtih CP, , fatigue since 6 AM this morning. Pain is 8/10, substernal, pressure/ tightness in quality, nothing makes better or worse, radiation to back between shoulder blades. Patient not taking anything for it. No cough, N/V/D, fever, chills, nightsweats, recent sick contacts or travel. Constitutional: No Weight Change, No Fever, No Chills, No Night Sweats, No Fatigue, No Malaise ENT/Mouth: No Hearing Changes, No Ear Pain, No Nasal Congestion, No Sinus Pain, No Hoarseness, No sore throat, No Rhinorrhea, No Swallowing Difficulty Eyes: No Eye Pain, No Swelling, No Redness, No Foreign Body, No Discharge, No Vision Changes Cardiovascular: + Chest Pain, + SOB, No PND, + Dyspnea on Exertion, No Orthopnea, No Claudication, No Edema, No Palpitations Respiratory: No Cough, No Sputum, No Wheezing, No Smoke Exposure, No Dyspnea Gastrointestinal: No Nausea, No Vomiting, No Diarrhea, No Constipation, No Pain, No Heartburn, No Anorexia, No Dysphagia, No Hematochezia, No Melena, No Flatulence, No Jaundice Genitourinary: No Dysmenorrhea, No DUB, No Dyspareunia, No Dysuria, No Urinary Frequency, No Hematuria, No Urinary Incontinence, No Urgency, No Flank Pain, No Urinary Flow Changes, No Hesitancy Musculoskeletal: No Arthralgias, No Myalgias, No Joint Swelling, No Joint Stiffness, No Back Pain, No Neck Pain, No Injury History Skin: No Skin Lesions, No Pruritis, No Hair Changes, No Breast/Skin Changes, No Nipple Discharge Neuro: No Weakness, No Numbness, No Paresthesias, No Loss of Consciousness, No Syncope, No Dizziness, No Headache, No Coordination Changes, No Recent Falls Psych: No Anxiety/Panic, No Depression, No Insomnia, No Personality Changes, No Delusions, No Rumination, No SI/HI/AH/VH, No Social Issues, No Memory Changes, No Violence/Abuse Hx., No Eating Concerns Heme/Lymph: No Bruising, No Bleeding, No Transfusions History, No Lymphadenopathy Endocrine: No Polyuria, No Polydipsia, No Temperature Intolerance Past History - Medical History Allergies/Adverse Reactions: Allergies Allergy/AdvReac Type Severity Reaction Status Date / Time niacin Allergy Verified 05/05/18 17:33 Home Medications: Ambulatory Orders Aspirin 81 mg PO DAILY 05/05/18 Fenofibrate,Micronized [Fenofibrate] 134 mg PO DAILY 05/05/18 Losartan Potassium [Cozaar -] 50 mg PO DAILY 05/05/18 Metformin HCl [Glucophage] 500 mg PO DAILY 05/05/18 Sertraline HCl [Zoloft -] 50 mg PO DAILY 05/05/18 Acetaminophen W/ Codeine #3 [Tylenol # 3 -] 1 tab PO Q6H PRN #10 tablet MDD 4 tabs 05/08/18 COPD: No Diabetes: Yes HTN: Yes Hypercholesterolemia: Yes Psychiatric Problems: Yes (depression) - Psycho-Social/Smoking History Smoking History: Never smoked Have you smoked in the past 12 months: No Information on smoking cessation initiated: No - Substance Abuse Hx (Audit-C & DAST Scrn) How often the patient has a drink containing alcohol: Never Score: In Men: 4 or > Positive; In Women: 3 or > Positive: 0 Screen Result (Pos requires Nsg. Audit-10AR): Negative In the last yr the pt used illegal drug/Rx for NonMed reason: No Score: Yes response is considered Positive: 0 Screen Result (Positive result requires Nsg. DAST-10): Negative *Physical Exam - Vital Signs Last Vital Signs Temp Pulse Resp BP Pulse Ox 98.3 F 63 18 131/54 L 98 01/01/20 18:31 01/01/20 18:31 01/01/20 18:31 01/01/20 18:31 01/01/20 18:31 - Physical Exam General Appearance: Yes: Nourished, Appropriately Dressed HEENT: positive: EOMI, [place], Normal ENT Inspection, Normal Voice Neck: positive: Trachea midline, Normal Thyroid Respiratory/Chest: positive: Lungs Clear, Normal Breath Sounds Cardiovascular: positive: Regular Rhythm, Regular Rate, S1, S2 Gastrointestinal/Abdominal: positive: Normal Bowel Sounds, Flat, Soft Musculoskeletal: positive: Normal Inspection, Other (some TTP in sternum) Extremity: positive: Normal Capillary Refill Integumentary: positive: Normal Color, Dry, Warm ED Treatment Course - LABORATORY CBC & Chemistry Diagram: 01/01/20 19:08 01/01/20 19:08 Medical Decision Making - Medical Decision Making 69 YOF h/o diabetes and bradycardia, paced, with chest pain and SOB - vitals wnl - exam with suprasternal ttp - CXR, ECG, CBC, CMP, cardiac profile 01/02/20 00:25 Reassess: - labs and imaging wnl - will admit patient to Tele given h/o diabetes, cardiac, age in the context of 11/19 chest pain Discharge - Discharge Information Problems reviewed: Yes Clinical Impression/Diagnosis: Chest pain - Follow up/Referral - Patient Discharge Instructions - Post Discharge Activity
[2020-01-01 20:31] LABS: INR 1.03 (0.83-1.09); PROTHROMBIN TIME (PATIENT) 12.2 SEC (9.7-13.0)
[2020-01-01 20:55] LABS: ALBUMIN 4.5 g/dl (3.4-5.0); BILIRUBIN,TOTAL 0.6 mg/dL (0.2-1); BLOOD UREA NITROGEN 23.6 mg/dL (7-18); CALCIUM 9.5 mg/dL (8.5-10.1); CREATININE 1.1 mg/dL (0.55-1.3); MAGNESIUM 2.4 mg/dL (1.8-2.4); POTASSIUM 4.1 mmol/L (3.5-5.1); TOT PROT 8.2 g/dl (6.4-8.2)
--- NOTE | 2020-01-01 23:48 | HP ---
CHIEF COMPLAINT: Chest pain PCP: Oly Dowd HISTORY OF PRESENT ILLNESS: Ms. Welsh is a 69 F w a pmh of mobits Type II AV block, s/p pacemaker, impaired LV relaxation on echo in 2018, HTN, NIDDM, depression, COVID 19 positive in July who presented to the ED w a c/o centeralized substernal chest pain that radiates to the left pectoral area on exertion. The patient was on a walk with her daughter this morning where she began to experience substernal chest pain. The patient reported that the pain did not subside with rest and spontaneously resolved. The patient was seen comfortable in the ED and does not report any pain during rest. The pain was reproducible on palpation and the patient denies any further complaints. ER course was notable for: (1) (2) (3) Recent Travel: denies PAST MEDICAL HISTORY: as above PAST SURGICAL HISTORY: appendectomy 30 years ago, pacemaker placement Social History: Smoking:denies Alcohol: denies Drugs: denies Allergies niacin Allergy (Verified 05/05/18 17:33) HOME MEDICATIONS: Home Medications Medication Instructions Recorded Aspirin 81 mg PO DAILY 05/05/18 Fenofibrate,Micronized 134 mg PO DAILY 05/05/18 [Fenofibrate] Losartan Potassium [Cozaar -] 50 mg PO DAILY 05/05/18 Metformin HCl [Glucophage] 500 mg PO DAILY 05/05/18 Sertraline HCl [Zoloft -] 50 mg PO DAILY 05/05/18 Acetaminophen W/ Codeine #3 1 tab PO Q6H PRN #10 tablet MDD 4 05/08/18 [Tylenol # 3 -] tabs REVIEW OF SYSTEMS CONSTITUTIONAL: Absent: fever, chills, diaphoresis, generalized weakness, malaise, loss of appetite, weight change CARDIOVASCULAR: chest pain RESPIRATORY: Absent: cough, shortness of breath, dyspnea with exertion, orthopnea, wheezing, stridor, hemoptysis GASTROINTESTINAL: Absent: abdominal pain, abdominal distension, nausea, vomiting, diarrhea, constipation, melena, hematochezia GENITOURINARY: Absent: dysuria, frequency, urgency, hesitancy, hematuria, flank pain, genital pain PHYSICAL EXAMINATION Vital Signs - 24 hr 01/01/20 18:31 Temperature 98.3 F Pulse Rate 63 Respiratory 18 Rate Blood Pressure 131/54 L O2 Sat by Pulse 98 Oximetry (%) GENERAL: Awake, alert, and fully oriented, in no acute distress. LUNGS: Breath sounds equal, clear to auscultation bilaterally. No wheezes, and no crackles. No accessory muscle use. HEART: irregular rate and rhythm, normal S1 and S2 without murmur, rub or gallop. ABDOMEN: Soft, nontender, not distended, normoactive bowel sounds, no guarding, no rebound, no masses. No hepatomegaly or splenomegaly. UPPER EXTREMITIES: 2+ pulses, warm, well-perfused. No cyanosis. No clubbing. No peripheral edema. LOWER EXTREMITIES: 2+ pulses, warm, well-perfused. No calf tenderness. No peripheral edema. Laboratory Results - last 24 hr 01/01/20 01/01/20 01/01/20 19:08 19:08 19:08 WBC 4.5 RBC 4.11 Hgb 13.5 Hct 38.9 MCV 94.7 MCH 32.8 MCHC 34.6 RDW 13.8 Plt Count 214 D MPV 8.6 Absolute Neuts (auto) 2.4 Neutrophils % 52.9 D Lymphocytes % 35.0 D Monocytes % 8.6 Eosinophils % 3.0 Basophils % 0.5 Nucleated RBC % 0 PT with INR 12.20 INR 1.03 Sodium 141 Potassium 4.1 Chloride 108 H Carbon Dioxide 27 Anion Gap 6 L BUN 23.6 H Creatinine 1.1 Est GFR (CKD-EPI)AfAm 58.91 Est GFR (CKD-EPI)NonAf 50.83 Random Glucose 83 Calcium 9.5 Magnesium 2.4 Total Bilirubin 0.6 AST 42 H ALT 41 Alkaline Phosphatase 90 Creatine Kinase 90 Troponin I 0.03 Total Protein 8.2 Albumin 4.5 ASSESSMENT/PLAN: Ms. Welsh is a 69 F w a pmh of mobits Type II AV block, s/p pacemaker, impaired LV relaxation on echo in 2018, borderline right ventricular enlargement, HTN, NIDDM, depression, COVID 19 positive in July who presented to the ED w a c/o centeralized substernal chest pain that radiates to the left pectoral area on exertion. #Rule out ACS vs unstable angina admit to tele trending trops (x1 negative) CXR negative cardiology consultation pacemaker interogation Repeat Echo #possible reba elevated crat at bl monitor for reba Bun:Cr = 20:1 oral hydration encouragement #IDDM oral home medications diabetic diet #DVT ppx sq lovenox Family Medical History Family History: As Documented Visit type - Medication Review Med list reviewed for High Risk Meds patients 65 and older: Yes - Emergency Visit Emergency Visit: Yes ED Registration Date: 01/01/20 Care time: The patient presented to the Emergency Department on the above date and was hospitalized for further evaluation of their emergent condition. - New Patient This patient is new to me today: Yes Date on this admission: 01/02/20 - Critical Care Critical Care patient: No ATTENDING PHYSICIAN STATEMENT I saw and evaluated the patient. I reviewed the resident's note and discussed the case with the resident. I agree with the resident's findings and plan as documented. SUBJECTIVE: OBJECTIVE: ASSESSMENT AND PLAN:
--- OUTSIDE RECORDS SUMMARY | 2020-01-01 23:51 | XMS ---
:1950 Author Organization [facility] Support Name Relationship Address Phone RE, RETIRED Unavailable Unavailable Unavailable RE Unavailable Unavailable Unavailable JANINE PARDO DAUGHTER [address] [phone] [place] [address] JANINE PARDO Unavailable [address] [place] [address] Re-disclosure Warning The records that you are about to access may contain information from federally- assisted alcohol or drug abuse programs. If such information is present, then the following federally mandated warning applies: This information has been disclosed to you from records protected by federal confidentiality rules (42 CFR part 2). The federal rules prohibit you from making any further disclosure of this information unless further disclosure is expressly permitted by the written consent of the person to whom it pertains or as otherwise permitted by 42 CFR part 2. A general authorization for the release of medical or other information is NOT sufficient for this purpose. The Federal rules restrict any use of the information to criminally investigate or prosecute any alcohol or drug abuse patient.The records that you are about to access may contain highly sensitive health information, the redisclosure of which is protected by Article 27-F of the [facility] Public Health law. If you continue you may haveaccess to information: Regarding HIV / AIDS; Provided by facilities licensed or operated by the [facility] Office of Mental Health; or Provided by the [facility] Office for People With Developmental Disabilities. If such information is present, then the following [facility] mandated warning applies: This information has been disclosed to you from confidential records which are protected by state law. State law prohibits you from making any further disclosure of this information without the specific written consent of the person to whom it pertains, or as otherwise permitted by law. Any unauthorized further disclosure in violation of state law may result in a fine or nursing home sentence or both. A general authorization for the release of medical or other information is NOT sufficient authorization for further disclosure. Allergies and Adverse Reactions Type Description Substance Reaction Status Data Source(s ) Drug allergy Niacin Niacin erythema;swelling Active eCW3 ([facility]) Encounters Encounter Providers Location Date Indications Data Source(s ) [facility] 08/12/2018 eCW3 ([facility] 12:00:00 AM Health Care) EDT - 08/12/2018 12:00:00 AM EDT [facility] 07/20/2018 eCW3 ([facility] A28 12:00:00 AM Health Care) EDT - 07/20/2018 12:00:00 AM EDT [facility] 06/01/2018 eCW3 ([facility]28 12:00:00 AM Health Care) EST - 06/01/2018 12:00:00 AM EST Medications Medication Brand Start Product Dose Route Administrative Pharmacy [facility] Indications Reaction Description Data Name Date Form Instructions Instructions Source(s) terbinafine Terbin .0 active Terbina fine eCW3 250 MG Oral afine 2018 {tabl HCl 250 mg ([facility] Tablet HCl 12:00: et} [place] Terbinafine 250 mg 00 AM Healt h HCl 250 mg EST Care) ciclopirox Penlac .0 active Penlac 8 % eCW3 80 MG/ML 8 % 2018 {appl ([facility]aya Topical 12:00: icati [place] Solution 00 AM on_to Health [Penlac EST _affe Care) Nail cted_ Lacquer] area} Penlac 8 % atorvastati Atorva .0 active Atorvas tatin eCW3 n 20 MG statin 2017 {tabl Calcium 20 (Hu dson Oral Tablet Calciu 12:00: et} MG Rive r Atorvastati m 20 00 AM Health n Calcium MG EDT Care) 20 MG atorvastati Atorva .0 active Atorvas tatin eCW3 n 20 MG statin 2017 {tabl Calcium 20 (Hu dson Oral Tablet Calciu 12:00: et} MG Rive r Atorvastati m 20 00 AM Health n Calcium MG EDT Care) 20 MG atorvastati Atorva .0 active Atorvas tatin eCW3 n 20 MG statin 2017 {tabl Calcium 20 (Hu dson Oral Tablet Calciu 12:00: et} MG Rive r Atorvastati m 20 00 AM Health n Calcium MG EDT Care) 20 MG Naproxen Naprox 10/28/ suspend Naproxen 500 eCW3 500 MG Oral en 500 2015 ed MG ([place] Tablet MG 12:00: [facility] 00 AM Health EDT Care) Naproxen Naprox 10/28/ suspend Naproxen 500 eCW3 500 MG Oral en 500 2015 ed MG ([place] Tablet MG 12:00: [place] 00 AM Health EDT Care) Naproxen Naprox 10/28/ suspend Naproxen 500 eCW3 500 MG Oral en 500 2015 ed MG ([place] Tablet MG 12:00: [place] 00 AM Health EDT Care) Fluoxetine Fluoxe .0 suspend Fluoxet ine eCW3 20 MG Oral diamante 2015 {caps ed HCl 20 MG (Hu dson Capsule HCl 20 12:00: ule_i [place] Fluoxetine MG 00 AM n_Counts include [facility] beds at the [facility] HCl 20 MG EDT _morn Care) ing} Fluoxetine Fluoxe .0 suspend Fluoxet ine eCW3 20 MG Oral diamante 2015 {caps ed HCl 20 MG (Hu dson Capsule HCl 20 12:00: ule_i [place] Fluoxetine MG 00 AM n_Counts include 234 beds at the [facility] HCl 20 MG EDT _morn Care) ing} Fluoxetine Fluoxe .0 suspend Fluoxet ine eCW3 20 MG Oral diamante 2015 {caps ed HCl 20 MG (Hu dson Capsule HCl 20 12:00: ule_i [place] Fluoxetine MG 00 AM n_Counts include 234 beds at the [facility] HCl 20 MG EDT _morn Care) ing} Metformin Metfor .0 active Metformin eCW3 hydrochlori min 2015 {tabl HCl 500 MG ( Anaya de 500 MG HCl 12:00: et_wi [place] Oral Tablet 500 MG 00 AM th_ar Heal th Metformin EDT als} Care) HCl 500 MG Lancets n/a UNK 07/05/ suspend Lancets n/a eCW3 2013 ed (Anaya 12:00: [place] 00 AM Health EDT Care) Lancets n/a UNK 07/05/ suspend Lancets n/a eCW3 2013 ed ([facility]aya 12:00: [place] 00 AM Health EDT Care) Lancets n/a UNK 07/05/ suspend Lancets n/a eCW3 2013 ed ([facility]aya 12:00: [place] 00 AM Health EDT Care) GLUCOMETER UNK 07/05/ suspend GLUCOMETE R eCW3 NIDD 2013 ed NIDD (Anaya 12:00: [place] 00 AM Health EDT Care) GLUCOMETER UNK 07/05/ suspend GLUCOMETE R eCW3 NIDD 2013 ed NIDD ([facility]aya 12:00: [place] 00 AM Health EDT Care) GLUCOMETER UNK 07/05/ suspend GLUCOMETE R eCW3 NIDD 2013 ed NIDD (Anaya 12:00: [place] 00 AM Health EDT Care) Losartan Losart 1.0 active Losartan e CW3 Potassium an 2012 {tabl Potassium 50 ( Anaya 50 MG Oral Potass 12:00: et} mg [place] Tablet ium 50 00 AM Health Losartan mg EDT Care) Potassium 50 mg Losartan Losart 1.0 active Losartan e CW3 Potassium an 2012 {tabl Potassium 50 ( Anaya 50 MG Oral Potass 12:00: et} mg [place] Tablet ium 50 00 AM Health Losartan mg EDT Care) Potassium 50 mg Losartan Losart 1.0 active Losartan e CW3 Potassium an 2012 {tabl Potassium 50 ( Anaya 50 MG Oral Potass 12:00: et} mg [place] Tablet ium 50 00 AM Health Losartan mg EDT Care) Potassium 50 mg Fenofibrate Fenofi active Fenofibra te eCW3 134 MG Oral brate Micronized ( [facility]aya Capsule Micron 134 MG [facility] Fenofibrate ized Health Micronized 134 MG Care) 134 MG Aspirin 81 Aspiri 1.0 active Aspirin 81 eCW3 MG Chewable n 81 {tabl mg ([facility]aya Tablet mg et} [place] Aspirin 81 Health mg Care) Sertraline Sertra 1.0 active Sertraline eCW3 50 MG Oral line {tabl HCl 50 mg (Hu dson Tablet HCl 50 et} [facility] Sertraline mg Health HCl 50 mg Care) Aspirin 81 Aspiri 1.0 active Aspirin 81 eCW3 MG Chewable n 81 {tabl mg ([facility]aya Tablet mg et} [place] Aspirin 81 Health mg Care) Metformin Metfor 1.0 active Metformin e CW3 hydrochlori min {tabl HCl 500 mg ( Anaya de 500 MG HCl et_wi [place] Oral Tablet 500 mg th_me Healt h Metformin als} Care) HCl 500 mg Fenofibrate Fenofi active Fenofibra te eCW3 134 MG Oral brate Micronized ( Anaya Capsule Micron 134 MG [place] Fenofibrate ized Health Micronized 134 MG Care) 134 MG Meclizine Mecliz 1.0 active Meclizine e CW3 Hydrochlori ine {tabl HCl 25 MG (H udson de 25 MG HCl 25 et_as [place] Oral Tablet MG _need Health Meclizine ed} Care) HCl 25 MG Metformin Metfor 1.0 active Metformin e CW3 hydrochlori min {tabl HCl 500 mg ( Anaya de 500 MG HCl et_wi [place] Oral Tablet 500 mg th_me Healt h Metformin als} Care) HCl 500 mg Aspirin 81 Aspiri 1.0 active Aspirin 81 eCW3 MG Chewable n 81 {tabl mg (Anaya Tablet mg et} [place] Aspirin 81 Health mg Care) Fenofibrate Fenofi active Fenofibra te eCW3 134 MG Oral brate Micronized ( Anaya Capsule Micron 134 MG [place] Fenofibrate ized Health Micronized 134 MG Care) 134 MG terbinafine Terbin 1.0 active Terbinafi ne eCW3 250 MG Oral afine {tabl HCl 250 mg (Anaya Tablet HCl et} [place] Terbinafine 250 mg Health HCl 250 mg Care) ciclopirox Penlac 1.0 active Penlac 8 % eCW3 80 MG/ML 8 % {appl (Anaya Topical icati [place] Solution on_to Health [Penlac _affe Care) Nail cted_ Lacquer] area} Penlac 8 % ciclopirox Penlac 1.0 active Penlac 8 % eCW3 80 MG/ML 8 % {appl (Anaya Topical icati [place] Solution on_to Health [Penlac _affe Care) Nail cted_ Lacquer] area} Penlac 8 % Sertraline Sertra 1.0 active Sertraline eCW3 50 MG Oral line {tabl HCl 50 mg (Hu dson Tablet HCl 50 et} [place] Sertraline mg Health HCl 50 mg Care) Sertraline Sertra 1.0 active Sertraline eCW3 50 MG Oral line {tabl HCl 50 mg (Hu dson Tablet HCl 50 et} [place] Sertraline mg Health HCl 50 mg Care) terbinafine Terbin 1.0 active Terbinafi ne eCW3 250 MG Oral afine {tabl HCl 250 mg (Anaya Tablet HCl et} [place] Terbinafine 250 mg Health HCl 250 mg Care) Meclizine Mecliz 1.0 active Meclizine e CW3 Hydrochlori ine {tabl HCl 25 MG (H udson de 25 MG HCl 25 et_as [place] Oral Tablet MG _need Health Meclizine ed} Care) HCl 25 MG Insurance Providers Payer name Policy type Policy ID Covered Covered republican's Policy P jeffrey / Coverage republican ID relationship to [facility] Inf ormation type simmons MEDICAID [id number] SP [id number] [facility] [id number] SP [id number] MEDICARE ADV PLAN ASHLEY MEDICARE [id number] SP [id number] Problems, Conditions, and Diagnoses Code Display Name Description Problem Type Effective Data Sour ce(s) Dates Z95.0 Pacemaker Pacemaker Problem 05/20/2018 eCW3 ([facility] 12:00:00 AM [facility] EST Care) E78.1 High triglycerides High triglycerides Problem 9 eCW3 ([facility] 12:00:00 AM [facility] EST Care) K80.20 Calculus of Calculus of Problem 07/08/2016 eCW3 ([facility] gallbladder without gallbladder without 12:00:0 0 AM [facility] cholecystitis cholecystitis EDT Care) without obstruction without obstruction K76.0 Fatty liver Fatty liver Problem 07/08/2016 eCW3 ([facility] 12:00:00 AM [facility] EDT Care) H40.9 Glaucoma of both Glaucoma of both Problem 04/10/2016 eC W3 ([facility] eyes, unspecified eyes, unspecified 12:00:00 AM [facility] glaucoma glaucoma EST Care) Z78.0 Menopause Menopause Problem 10/29/2015 eCW3 ([facility] 12:00:00 AM [facility] EDT Care) E55.9 Vitamin D Vitamin D Problem 04/25/2015 eCW3 ([facility] deficiency deficiency 12:00:00 AM [facility] EST Care) E11.9 Type II diabetes Type 2 diabetes Problem 04/25/2015 eCW 3 ([facility] mellitus without mellitus without 12:00:00 AM [facility] complication complications EST [facility] [place]) I10 Essential Essential (primary) Problem 04/25/2015 eCW3 ([place] hypertension hypertension 12:00:00 AM [facility]) F32.9 Depression Depression Problem 04/25/2015 eCW3 ([place] 12:00:00 AM [facility]) E78.5 Hyperlipidemia Hyperlipidemia Problem 03/20/2015 eCW3 ( [place] 12:00:00 AM [facility]) Surgeries/Procedures Procedure Description Date Indications Data Source(s) EKG W INTERPRETATION 06/01/2018 [facility]) Social History Code Duration Value Status Description Data Source(s ) Smoking 03/03/2019 12:00:00 Never Smoker completed Never Smoker e CW3 ([facility]) Smoking 03/03/2019 12:00:00 Never Smoker completed Never Smoker e CW3 ([facility]) Smoking 06/05/2018 12:00:00 Never Smoker completed Never Smoker e CW3 ([facility]) Never Smoker completed Never Smoker eCW3 ([facility]) Never Smoker completed Never Smoker eCW3 ([facility]) Never Smoker completed Never Smoker eCW3 ([facility]) Vital Signs ID Date Data Source UNK Name Value Range Interpretation Code Description Data Source(s) Diastolic blood 55 mm[Hg] 55 mm[Hg] eCW3 ([facility]) Systolic blood 106 mm[Hg] 106 mm[Hg] eCW3 ([facility]) Body temperature 98.7 [degF] 98.7 [degF] eCW3 ( [facility]) Body mass index 22.67 kg/m2 22.67 kg/m2 eCW3 (H cira (BMI) [Ratio] [facility]) Body weight 120 [lb_av] 120 [lb_av] eCW3 ([facility]) Body height 61 [in_i] 61 [in_i] eCW3 ([facility]) Diastolic blood 64 mm[Hg] 64 mm[Hg] eCW3 ([facility]) Systolic blood 123 mm[Hg] 123 mm[Hg] eCW3 ([facility]) Body temperature 98.3 [degF] 98.3 [degF] eCW3 ( [facility]) Body mass index 23.05 kg/m2 23.05 kg/m2 eCW3 (H cira (BMI) [Ratio] [facility]) Body weight 122 [lb_av] 122 [lb_av] eCW3 ([facility]) Body height 61 [in_i] 61 [in_i] eCW3 ([facility]) Diastolic blood 63 mm[Hg] 63 mm[Hg] eCW3 ([facility]) Systolic blood 146 mm[Hg] 146 mm[Hg] eCW3 ([facility]) Body temperature 98.7 [degF] 98.7 [degF] eCW3 ( [facility]) Body mass index 22.48 kg/m2 22.48 kg/m2 eCW3 (H isidroson (BMI) [Ratio] [facility]) Body weight 119 [lb_av] 119 [lb_av] eCW3 ([facility]) Body height 61 [in_i] 61 [in_i] eCW3 ([facility]) Patient Treatment Plan of Care Planned Activity Planned Date Details Description Data Source (s) Metformin hydrochloride 500 eCW3 ([facility] MG Oral Tablet [facility]) Metformin hydrochloride 500 eCW3 ([facility] MG Oral Tablet [facility])
--- NOTE | 2020-01-02 00:51 | PN ---
Teaching Attending Note Name of Resident: Felice Mcgowan ATTENDING PHYSICIAN STATEMENT I saw and evaluated the patient. I reviewed the resident's note and discussed the case with the resident. I agree with the resident's findings and plan as documented. SUBJECTIVE: 69yoF with h/o Mobitz type II s/p PPM, hypertension, and diabetes who presents with chest pain x1 day. Patient reports developing chest pressure, dyspnea, and fatigue while on a walk early in the morning with radiation to the left chest. No palpitations, diaphoresis, lightheadedness, syncope, cough. Last echo available in system from April 2018 shows LVEF 55-60% with impaired LV relaxation. At time of evaluation, patient is asymptomatic and has no acute complaints. Patient was afebrile and hemodynamically stable in the ED. EKG showing V-paced rhythm. Labs notable for creatinine 1.1 from baseline 0.7, troponin 0.03. CXR unremarkable. OBJECTIVE: Last Vital Signs Temp Pulse Resp BP Pulse Ox 98.3 F 60 16 140/69 97 01/01/20 18:31 01/02/20 00:37 01/02/20 00:37 01/02/20 00:37 01/02/20 00:37 EXAM Gen: awake, alert, NAD HEENT: NC/AT, MMM CV: RRR, no MRG appreciated Resp: CTAB, unlabored Abd: Soft, NT, ND MSK: Chest pain to palpation mid sternum and left of sternum Ext: No edema Neuro: CN II-XII grossly intact, moving all extremities Laboratory Results - last 24 hr 01/01/20 01/01/20 01/01/20 19:08 19:08 19:08 WBC 4.5 RBC 4.11 Hgb 13.5 Hct 38.9 MCV 94.7 MCH 32.8 MCHC 34.6 RDW 13.8 Plt Count 214 D MPV 8.6 Absolute Neuts (auto) 2.4 Neutrophils % 52.9 D Lymphocytes % 35.0 D Monocytes % 8.6 Eosinophils % 3.0 Basophils % 0.5 Nucleated RBC % 0 PT with INR 12.20 INR 1.03 Sodium 141 Potassium 4.1 Chloride 108 H Carbon Dioxide 27 Anion Gap 6 L BUN 23.6 H Creatinine 1.1 Est GFR (CKD-EPI)AfAm 58.91 Est GFR (CKD-EPI)NonAf 50.83 Random Glucose 83 Calcium 9.5 Magnesium 2.4 Total Bilirubin 0.6 AST 42 H ALT 41 Alkaline Phosphatase 90 Creatine Kinase 90 Troponin I 0.03 Total Protein 8.2 Albumin 4.5 ASSESSMENT AND PLAN: 69yoF with h/o Mobitz type II s/p PPM, hypertension, and diabetes who presents with chest pain x1 day, reproducible to palpation Chest pain Reproducible on palpation, reassuring against cardiac etiology However, given associated dyspnea and fatigue will rule out for ACS - tele, troponins - A1c, lipids - pacemaker interrogation - Tylenol PRN - cardiology consult ZHANE Creatinine 1.1 from baseline 0.6 Most likely prerenal given elevated BUN:Cr ratio - encourage PO hydration - trend - hold nephrotoxic meds DVT ppx: heparin subq
--- NOTE | 2020-01-02 08:52 | CON.CARD ---
Consult Consult Specialty:: cardiology - History of Present Illness History of Present Illness: Ms. Welsh is a 69-year-old female with history of high degree heart block requiring pacemaker placement, DM, HTN, now with retrosternal chest pain radiating to the back. Initial EKG shows a ventricular paced rhythm approximately 75 bpm. Pt tells me she is seen by the cardiologists in the [facility]. I have informed the ER special education secretary, and will cancel this note. - Past Surgical History Past Surgical History: Yes: Appendectomy - Alcohol/Substance Use Hx Alcohol Use: No - Smoking History Smoking history: Never smoked Have you smoked in the past 12 months: No - Social History Usual Living Arrangement: With Parent ADL: Independent Home Medications - Allergies Allergies/Adverse Reactions: Allergies Allergy/AdvReac Type Severity Reaction Status Date / Time niacin Allergy Verified 05/05/18 17:33 - Home Medications Home Medications: Ambulatory Orders Aspirin 81 mg PO DAILY 05/05/18 Fenofibrate,Micronized [Fenofibrate] 134 mg PO DAILY 05/05/18 Losartan Potassium [Cozaar -] 50 mg PO DAILY 05/05/18 Metformin HCl [Glucophage] 500 mg PO DAILY 05/05/18 Sertraline HCl [Zoloft -] 50 mg PO DAILY 05/05/18 Acetaminophen W/ Codeine #3 [Tylenol # 3 -] 1 tab PO Q6H PRN #10 tablet MDD 4 tabs 05/08/18 Vital Signs: Vital Signs Temperature 97.7 F 01/02/20 06:50 Pulse Rate 64 01/02/20 06:50 Respiratory Rate 17 01/02/20 06:50 Blood Pressure 112/65 01/02/20 06:50 O2 Sat by Pulse Oximetry (%) 100 01/02/20 06:50 - Other Data Labs, Other Data: CBC, BMP 01/01/20 19:08 01/01/20 19:08 INR, PTT INR 1.03 (0.83-1.09) 01/01/20 19:08 Troponin, BNP 01/01/20 01/02/20 19:08 05:32 Troponin I 0.03 0.02 Troponin, BNP 01/01/20 01/02/20 19:08 05:32 Troponin I 0.03 0.02 Assessment/Plan Atypical chest pain TNI 0.03-->0.02 EKG: s/p PPM for "bradycardia" ECHO 04/30: normal LVEF; diastolic dysfunction; mild MR and TR; ? small pericardial effusion DM HTN anxiety Pl: COVID pending ACEI for HTN, renal protection (DM) unless contraindications exist. Serial TNi and EKG Plan for repeat ECHO (once COVID status known) to assess LVEF, valve status, r/o presence or progression of pericardial effusion. F/u TSH and lipids, HGBA1c. Addendum: Pt says she is followed by the cardiologists at [facility]. I informed the special education secretary in ER, and will cancel this note.
--- NOTE | 2020-01-02 09:39 | EKG ---
Test Reason : Blood Pressure : / mmHG Vent. Rate : 122 BPM Atrial Rate : 122 BPM P-R Int : 000 ms QRS Dur : 040 ms QT Int : 138 ms P-R-T Axes : 000 025 -18 degrees QTc Int : 196 ms Ventricular-paced rhythm IN A PATTERN OF BIGEMINY ABNORMAL ECG WHEN COMPARED WITH ECG OF 01-JAN-2020 18:26, ELECTRONIC VENTRICULAR PACEMAKER HAS REPLACED SINUS RHYTHM Confirmed by Jules Valente ([id number]) on 01/02/2020 9:38:47 AM Referred By: Confirmed By:Jules Valente
[2020-01-02] MEDS ORDERED: ASPIRIN 81 MG CHEWABLE TABLETS PO SCH (10:00)
[2020-01-02] MEDS ORDERED: SERTRALINE HCL 50 MG TABLET (FP) PO SCH (10:00)
--- NOTE | 2020-01-02 10:54 | ECHO ---
Version: 1 Name: ROJAS CASTILLO Exam: Adult Echocardiogram Study Date: 01/02/2020, 9:46 AM Age: 69 Years MMode/2D Measurements & Calculations IVSd: 0.98 cm LVIDs: 2.9 cm LVIDd: 4.2 cm LVPWd: 0.93 cm LAV (MOD-bp): 37.0 ml ACS: 1.49 cm Ao root diam: 2.6 cm LVOT diam: 1.95 cm LA dimension: 3.2 cm Doppler Measurements & Calculations MV E max didier: 71.6 cm/sec Med E/e': 14.4 MV A max didier: 103.2 cm/sec Med Peak E' Didier: 5.0 cm/sec MV E/A: 0.69 Lat E/e': 12.0 Lat Peak E' Didier: 5.9 cm/sec MR max P.3 mmHg Ao max P.2 mmHg ISABELA(I,D): 2.10 cm Ao mean P.5 mmHg LV V1 mean: 75.0 cm/sec Ao V2 max: 167.6 cm/sec LV V1 mean P.7 mmHg PI end-d didier: 89.6 cm/sec TR max didier: 230.0 cm/sec TR max P.2 mmHg Procedure A two-dimensional transthoracic echocardiogram with color flow and Doppler was performed. The patien t has a paced rhythm. Left Ventricle The left ventricle is normal in size. Left ventricular systolic function is normal. Ejection Fractio n = 60%. The transmitral spectral Doppler flow pattern is suggestive of impaired LV relaxation. Right Ventricle There is a pacemaker lead in the right ventricle. The right ventricle is mildly dilated. The right ventricular systolic function is normal. Atria The left atrium is mildly dilated. The right atrium is mildly dilated. Mitral Valve The mitral valve is normal. There is mild mitral regurgitation. Tricuspid Valve The tricuspid valve is normal. There is mild tricuspid regurgitation. Right ventricular systolic pre ssure is elevated at 28 mmhg. Assuming the RA pressure is 5 mmHg. Aortic Valve The aortic valve is normal in structure and function. The aortic valve is trileaflet. No aortic regu rgitation is present. Pulmonic Valve The pulmonic valve leaflets are thin and pliable; valve motion is normal. There is no pulmonic valvu lar regurgitation. Great Vessels The aortic root is normal size. Pericardium/Pleura There is no pericardial effusion. Summary Statements Left ventricular systolic function is normal. The transmitral spectral Doppler flow pattern is suggestive of impaired LV relaxation. There is a pacemaker lead in the right ventricle. The right ventricle is mildly dilated. The right ventricular systolic function is normal. The left atrium is mildly dilated. The right atrium is mildly dilated. There is mild mitral regurgitation. There is mild tricuspid regurgitation. MD Adolfo Shields 01/02/2020, 10:53 AM Ordering Physician: Joel Rajput Referring Physician: JOEL RAJPUT Performed By: Shahida Beltre
[2020-01-02] MEDS ORDERED: SERTRALINE HCL 50 MG TABLET (FP) ONE (11:50)
[2020-01-02] MEDS ORDERED: ASPIRIN 81 MG CHEWABLE TABLETS ONE (11:50)
[2020-01-02 11:53] VITALS: TEMP 98.1
--- NOTE | 2020-01-02 12:18 | DS ---
Physical Exam: SUBJECTIVE: Pt's symptoms resolved. No complaints today. No SOB or diaphoresis during episode. Briefly, PPM insertion 2/2 Mobitz II, HTN, HLD who presented originally with chest discomfort without radiation. There was questionable dyspnea, however the patient was walking briskly. OBJECTIVE: Vital Signs Period Temp Pulse Resp BP Sys/Saleem Pulse Ox Last 24 Hr 97.7 F-98.3 F 60-73 16-18 112-140/52-69 96-100 PHYSICAL EXAM GENERAL: The patient is awake, alert, and fully oriented, in no acute distress. HEENT: NC/AT, KYLE, MMM NECK: No JVD LUNGS: CTA bilaterally, no wheezes, no crackles, no accessory muscle use. HEART: RRR, S1, S2 without murmur ABDOMEN: Soft, NT/ND, + BS, no guarding. EXTREMITIES: 2+ pulses, warm, well-perfused, no edema. PSYCH: Normal mood, normal affect. SKIN: Warm, dry, no rashes or lesions noted. LABS Laboratory Results - last 24 hr 01/01/20 01/01/20 01/01/20 19:08 19:08 19:08 WBC 4.5 RBC 4.11 Hgb 13.5 Hct 38.9 MCV 94.7 MCH 32.8 MCHC 34.6 RDW 13.8 Plt Count 214 D MPV 8.6 Absolute Neuts (auto) 2.4 Neutrophils % 52.9 D Lymphocytes % 35.0 D Monocytes % 8.6 Eosinophils % 3.0 Basophils % 0.5 Nucleated RBC % 0 PT with INR 12.20 INR 1.03 Sodium 141 Potassium 4.1 Chloride 108 H Carbon Dioxide 27 Anion Gap 6 L BUN 23.6 H Creatinine 1.1 Est GFR (CKD-EPI)AfAm 58.91 Est GFR (CKD-EPI)NonAf 50.83 Random Glucose 83 Calcium 9.5 Magnesium 2.4 Total Bilirubin 0.6 AST 42 H ALT 41 Alkaline Phosphatase 90 Creatine Kinase 90 Troponin I 0.03 Total Protein 8.2 Albumin 4.5 01/02/20 05:32 WBC RBC Hgb Hct MCV MCH MCHC RDW Plt Count MPV Absolute Neuts (auto) Neutrophils % Lymphocytes % Monocytes % Eosinophils % Basophils % Nucleated RBC % PT with INR INR Sodium Potassium Chloride Carbon Dioxide Anion Gap BUN Creatinine Est GFR (CKD-EPI)AfAm Est GFR (CKD-EPI)NonAf Random Glucose Calcium Magnesium Total Bilirubin AST ALT Alkaline Phosphatase Creatine Kinase Troponin I 0.02 Total Protein Albumin HOSPITAL COURSE: Date of Admission:01/01/20 Date of Discharge: 01/02/20 Pt was admitted on 01/01/2020 due to atypical chest pain. During her initial evaluation she was noted to have a unclear reproducible chest pain. She was monitored on cardiac monitors without events with two negative troponin draws. She had an echocardiogram performed which was at her baseline and did not reveal any areas of hypokinesis. Patient's symptoms resolved and she is being discharged home in stable condition. She is to follow-up with her primary physician and christian science practitioner. She is to continue her medications as she has been. Minutes to complete discharge: 33 Discharge Summary Problems reviewed: Yes Reason For Visit: CHEST PAIN Current Active Problems Chest pain (Acute) Condition: Improved - Instructions Diet, Activity, Other Instructions: You were seen here for your chest discomfort. Your heart enzymes were normal and your ultrasound of your heart was also normal. Being that all your symptoms have resolved you can be sent home and follow-up with your outpatient doctors. No medications were changed during this admission and please follow-up with your primary doctor and Dr. Sims. You will likely need a stress test to be decided by your outpatient doctors. Referrals: Noemí Aldridge MD [Primary Care Provider] - Sabiha Sims MD [Staff Physician] - Disposition: HOME - Home Medications Comprehensive Discharge Medication List: Ambulatory Orders Aspirin 81 mg PO DAILY 05/05/18 Fenofibrate,Micronized [Fenofibrate] 134 mg PO DAILY 05/05/18 Losartan Potassium [Cozaar -] 50 mg PO DAILY 05/05/18 Metformin HCl [Glucophage] 500 mg PO BID 05/05/18 Sertraline HCl [Zoloft -] 50 mg PO DAILY 05/05/18 Atorvastatin Calcium [Lipitor] 20 mg PO DAILY 01/02/20 Meclizine HCl [Antivert -] 25 mg PO DAILY 01/02/20 This patient is new to me today: Yes Date on this admission: 01/02/20 Emergency Visit: Yes ED Registration Date: 01/01/20 Care time: The patient presented to the Emergency Department on the above date and was hospitalized for further evaluation of their emergent condition. Critical Care patient: No - Discharge Referral Referred to [facility] Med [facility].: No
--- NOTE | 2020-01-02 12:51 | CON.CARD ---
Cardiology Consult (text) - Consultation Consultation Note: cc: chest pain hpi: 69 f hx htn, dm, 2nd degree AV block s/p ppm p/w chest pain. Patient is Malagasy speaking, spoke with her daughter on phone. had chest pressure, dyspnea and fatigue while walking on day of admission. resolved prior to arrival to ER, reportedly had reproducible chest pain. no prior stress test. echo unremarkable pmh: per hpi psh: appendectomy fam: no premature cad, scd social: no tob ros: per hpi; no nvd fever cough gib hematuria dysuria Current Medications Generic Name Dose Route Start Last Admin Trade Name Freq PRN Reason Stop Dose Admin Aspirin 81 mg 01/02/20 10:00 01/02/20 11:50 Asa - PO 81 mg DAILY NANETTE Administration Sertraline HCl 50 mg 01/02/20 10:00 01/02/20 11:51 Zoloft - PO 50 mg DAILY NANETTE Administration Vital Signs Period Temp Pulse Resp BP Sys/Saleem Pulse Ox Last 24 Hr 97.7 F-98.3 F 60-73 16-18 112-140/52-69 96-100 nad no jvd regular, s1s2 no mrg cta bl nl eff aaox3 no le e/c/c abd nt nd pos bs no jaundice diaphoresis pos dp pt no carotid bruits echo 04/2018: nl lv/rv, mild mr, mild tr, nl rvsp cxr: no acute process ecg: AV paced echo 12/2019 nl LV function, E/A reversal, PPM lead in RV, RV mildly dilated, LA mildly dilated, mild MR, mild TR a/p: 69 f hx htn, dm, s/p ppm here with chest pain chest pain - atypical, now resolved. reportedly was reproducible on palpation - trop neg x 2, paced EKG - less likely ACS - echo here unremarkable - stable for discharge from cardiac perspective, will arrange outpatient stress test high degree avb, s/p ppm - outpatient follow up htn: - cont home meds HLD - cont statin
[2020-01-02 15:48] VITALS: BP 119/50; PULSE 67
--- NOTE | 2020-01-03 10:01 | EKG ---
Test Reason : Blood Pressure : / mmHG Vent. Rate : 065 BPM Atrial Rate : 065 BPM P-R Int : 268 ms QRS Dur : 168 ms QT Int : 452 ms P-R-T Axes : 057 -65 090 degrees QTc Int : 470 ms Atrial-sensed ventricular-paced rhythm with prolonged AV conduction ABNORMAL ECG WHEN COMPARED WITH ECG OF 01-JAN-2020 20:42, VENT. RATE HAS DECREASED BY 57 BPM Confirmed by Jules Valente ([id number]) on 01/03/2020 10:00:50 AM Referred By: Cortney MYRICK Confirmed By:Jules Valente
--- NOTE | 2020-01-03 10:05 | EKG ---
Test Reason : Blood Pressure : / mmHG Vent. Rate : 136 BPM Atrial Rate : 136 BPM P-R Int : 274 ms QRS Dur : 170 ms QT Int : 238 ms P-R-T Axes : 064 -62 101 degrees QTc Int : 358 ms NORMAL SINUS RHYTHM atrial-sensed ventricular-paced complexes ABNORMAL ECG WHEN COMPARED WITH ECG OF 05-MAY-2018 17:52, SIGNIFICANT CHANGES HAVE OCCURRED Confirmed by Jules Valente ([id number]) on 01/03/2020 10:04:31 AM Referred By: Confirmed By:Jules Valente
== END 2020-01-02 17:15 | disposition home or self-care (01) ==
LOC: JER 18:20 → JERBED 23:36 → INTOOBSV 23:36
PROVIDERS: ADMIT Hospitalist; ATTEND Internal Medicine
DX: R07.89 Other chest pain (principal); I10 Essential (primary) hypertension; E11.9 Type 2 diabetes mellitus without complications; E78.5 Hyperlipidemia, unspecified; N17.9 Acute kidney failure, unspecified; F41.9 Anxiety disorder, unspecified; I44.1 Atrioventricular block, second degree; Z79.82 Long term (current) use of aspirin; Z79.84 Long term (current) use of oral hypoglycemic drugs; Z95.0 Presence of cardiac pacemaker; Z88.3 Allergy status to other anti-infective agents
CPT/HCPCS: 36415; 71046-TC-FY; 80053; 82550; 83735; 84484; 85025; 85610; 93005; 93010; 93306-TC; 99285-25; G0378; U0003